=== PATIENT | male | born 1985 | race Caucasian/White ===

== ENCOUNTER 2019-10-27 08:11 | Emergency (ER) | payer MEDICAID ==
[~2019-10-27] VITALS: Ht 182.9 cm; Wt 108.9 kg
[2019-10-27] MEDS ORDERED: BACTRIM DS TAB1 EACH PO ×2 (08:28→08:47)
[2019-10-27] MEDS ORDERED: METHADONE HCL50 GM MISC (08:28)
== END 2019-10-27 09:02 | disposition home or self-care (01) ==
LOC: ED 08:11
PROC: 0H9BXZZ Drainage of Right Upper Arm Skin, External Approach (ICD-10-PCS; principal; 2019-10-27)
DX: L02.413 Cutaneous abscess of right upper limb (principal)
CPT/HCPCS: 10060; 99282-25

== ENCOUNTER 2019-11-14 09:31 | Emergency (ER) | payer MEDICAID ==
[~2019-11-14] VITALS: Ht 182.9 cm; Wt 108.9 kg
--- OUTSIDE RECORDS SUMMARY | ~2019-11-14 | XMS | Encounter Summary ---
Demographics + + + | Address | [address] | | | [place] [address] | + + + | Home Phone | | + + + | Preferred Language | Unknown | + + + | Marital Status | Single | + + + | Faith Affiliation | Unknown | + + + | Race | Unknown | + + + | Ethnic Group | Unknown | + + + Author + + + | Author | [facility] | | | and [place] | + + + | Organization | [facility] | | | and [place] | + + + | Address | Unknown | + + + | Phone | Unavailable | + + + Support + + +---------+ + | Name | Relationship | Address | Phone | + + +---------+ + | Adis Darden | ECON | Unknown | | + + +---------+ + Care Team Providers + +------+ + | Care Physical Design Engineer Name | Role | Phone | + +------+ + PCP | Unavailable | + +------+ + Encounter Details +--------+ + + + + | Date | Type | Department | Care Team | Description | +--------+ + + + + | 08/06/ | Hospital | [facility] | [place], | Altered mental | | 2012 - | Encounter | [facility] | [address] | status; Heroin use; | | | | CARE [address]LO[address] | Polysubstance | | 08/07/ | | [address] | [place] [address] | overdose; | | 2012 | | [place], [place] | [phone] | Hyperglycemia; Drug | | | | [address] | | overdose; Skin rash | | | | [phone] | | | +--------+ + + + + Social History + +-------+ +--------+------+ | Tobacco Use | Types | Packs/Day | Years | Date | | | | | Used | | + +-------+ +--------+------+ | Never Assessed | | | | | + +-------+ +--------+------+ + + + | Sex Assigned at | Date Recorded | | | | + + + | Not on file | | + + + documented as of this encounter Discharge Summaries Thi Duarte MD - 08/11/2012 4:14 PM PDTFormatting of this note might be different from th e original. Discharge Summaries by Thi Duarte MD at 08/11/121613 Author: Thi Duarte MD Service: Hospitalist Author Type: Physician Filed: 08/11/12 1625 Date of Service: 08/11/121613 Status: Signed Marine Firefighter: Thi Duarte MD (Physician) [facility] Service: Hospitalist Discharge Summary Date of Admission: 08/06/2012 Date of Discharge: 08/07/12 Discharge Physician: Thi Duarte MD Treatment Team: Admitting Provider: Kd Mckoy MD Discharge Diagnoses: Principal Problem: *Drug overdose Active Problems: Change in mental status Heroin use Skin rash Resolved Problems: * No resolved hospital problems. * Procedures: * No surgery found * Significant Diagnostic Studies: Refer to imaging report under chart review BRIEF HISTORY OF PRESENTATION: Laura Darden is a 27 y.o. male who presented with AMS due to illicit drug overdos e ,referf to H&P for details. He was obtunded most of the day when i was rounding on him,CRU evaluated him see their note, he left AMA during ranch cook see nursing documentation. History reviewed. No pertinent past medical history. Past Surgical History Procedure Date Knee arthroscopy Unlisted procedure arthroscopy No Known Allergies No prescriptions prior to admission There are no discharge medications for this patient. Thi Duarte MD @td documented in this encou nter Progress Notes Conversion Transaction, Provider Unknown - 08/07/2012 1:10 AM PDTFormatting of this note m ight be different from the original. Progress Notes by Marry Walker RN at 08/07/12109 Author: Marry Walker RN Service: (none) Author Type: Registered Nurse Filed: 08/07/12113 Date of Service: 08/07/12109 Status: Signed Marine Firefighter: Marry Walker RN (Registered Nurse) Informed by RN that pt wants to leave AMA. I spoke with pt regarding the reason for wantin g to leave. Per pt he is worried about his possessions in his apt being stolen and doesn't see the need for still being here, pt states "I feel fine". Per Dr. Ware pt is able to l eave AMA. Discussed risks of leaving AMA with pt, AMA form signed. Pt escorted out by pt rehan jo at apx 0020. Marry Walker 1:13 AM ancKd Gutierrez MD - 08/07/2012 12:10 AM PDTFormatting of this note might be different fr om the original. Significant Event by Kd Mckoy MD at 08/07/129 Author: Kd Mckoy MD Service: Hospitalist Author Type: Physician Filed: 08/07/1211 Date of Service: 08/07/129 Status: Signed Marine Firefighter: Kd Mckoy MD (Physician) Called by nurse Re: pt wants to leave AMA Discussed case with crisis response (lynette), after reviewing case and recent note from cri sis response. Crisis response refers that there are no grounds to detain the patient in the hospital (since apparently was not a suicidal attempt) and patient can leave if he decides s o Nurse informed about my conversatin with crisis response onversion T ransaction, Provider Unknown - 08/06/2012 7:32 PM PDTFormatting of this note might be diffe rent from the original. Progress Notes by Clemente García at 08/06/121931 Author: Clemente García Service: (none) Author Type: Construction Manager Filed: 08/06/121934 Date of Service: 08/06/121931 Status: Signed Marine Firefighter: Clemente García (Construction Manager) Extended visit with pt. Pt. Sister present throughout. Pt expressed significant complicated grief over numerous losses. Especially the of pt. Mother about 11mths ago. Pt. Grew tearful and expressed willingness to go to rehab. Construction Manager office will follow up. onver philipp Transaction, Provider Unknown - 08/06/2012 7:47 AM PDT Progress Notes by Shivam Real RPH at 08/06/12746 Author: Shivam Real RPH Service: (none) Author Type: Pharmacist Filed: 08/06/1247 Date of Service: 08/06/12746 Status: Signed Marine Firefighter: Shivam Real RPH (Pharmacist) Renal Dosing Monitoring: Laura Darden 27 y.o. male Pharmacy dosing for renal function per Dr. Mckoy Medication(s): none at this time Plan per protocol: Medication / Dose: no CrCl available Will re-assess Pharmacy will continue monitoring patient for appropriate dosing per renal function. 08/06/2012 7:46 AM Pharmacist: SHIVAM REAL docume nted in this encounter H&P Notes Kd Mckoy MD - 08/06/2012 5:29 AM PDTFormatting of this note might be diffe rent from the original. H&P by Kd Mckoy MD at 08/06/12528 Author: Kd Mckoy MD Service: (none) Author Type: Physician Filed: 08/06/12 1834 Date of Service: 08/06/12528 Status: Signed Marine Firefighter: Kd Mckoy MD (Physician) Related Notes: Original Note by Kd Mckoy MD (Physician) filed at 08/06/12 0606 [facility] Service: Hospitalist Admission History & Physical Date of Admission: 08/06/2012 Requesting Physician: Dr Rooney, Emergency Department Reason for Admission: Change in mental status / drug overdose History Obtained From: patient CHIEF COMPLAINT: Change in mental status HISTORY OF PRESENT ILLNESS The patient is a 27 y.o. male with significant past medical history of Drug abuse who pres ents with Change in mental status The patient is a 27-year-old male with a significant past medical history of drug abuse and per chart review previous visits to the ED due to heroin and methamphetamine who comes to the ED with change in mental status. The patient, in fact, was found unresponsive. History is quite limited due to the patient's mental status. No family is present. History is taken by chart review. Apparently, the patient was found in the bedroom by the patient's girlfriend unresponsive. Unknown down time. Next to him was found drug paraphernalia is the reason why the EMS was called. The patient was found lying on the ground unconscious is the reason why the patient was brought to the ED where he received initially Narcan IV and currently Narcan drip. The patient does have multiple tracks and marked tracks on both arms. Currently the patient is not responding to verbal stimuli. He is responding to painful stimuli, able to move all extremities. He looks like he is able to protect his airway at this point. The patient will be admitted under the hospitalist service for further assessment and treatment. Urine drug screen is pending but has been ordered. CT of the head came back negative for any acute intracranial abnormalities. REVIEW OF SYSTEMS Review of Systems Unable to perform ROS: Mental status change History reviewed. No pertinent past medical history. Past Surgical History Procedure Date Knee arthroscopy Unlisted procedure arthroscopy Immunizations: Influenza: Pneumoccocal: No Known Allergies (Not in a hospital admission) History reviewed. No pertinent family history. History Social History Marital Status: Single Spouse Name: N/A Number of Children: N/A Years of Education: N/A Occupational History Not on file. Social History Main Topics Smoking status: Never Smoker Smokeless tobacco: Not on file Alcohol Use: No Drug Use: Yes Special: Methamphetamines, Heroin, IV Sexually Active: Yes -- Female partner(s) Other Topics Concern Not on file Social History Narrative No narrative on file PHYSICAL EXAM Vital Signs: BP 106/60 | Pulse 96 | Resp 20 | SpO2 98% Physical Exam Constitutional: He appears well-developed. He appears lethargic. HENT: Head: Atraumatic. Nose: Nose normal. Eyes: EOM are normal. Pupils are equal, round, and reactive to light. Neck: Neck supple. No JVD present. Cardiovascular: Normal rate, regular rhythm and normal heart sounds. Exam reveals no glass p and no friction rub. No murmur heard. Pulmonary/Chest: Effort normal. No respiratory distress. He has no wheezes. He has no rales . He exhibits no tenderness. Abdominal: Soft. He exhibits no distension and no mass. There is no tenderness. There is no rebound and no guarding. Musculoskeletal: He exhibits no edema. Neurological: He appears lethargic. Limited neurological exam - Pt not responding to verbal stimuli / able to respond to p ainful stimuli / no obvious signs of focalization Skin: DATA CBC: Lab Results Component Value Date WBC 7.5 08/06/2012 RBC 4.83 08/06/2012 HGB 15.7 08/06/2012 HCT 47.6 08/06/2012 MCV 98.6 08/06/2012 MCH 32.6 08/06/2012 MCHC 33.1 08/06/2012 RDW 42.9 08/06/2012 PLT 213 08/06/2012 MPV 8.8 08/06/2012 DIFFTYPE AUTOMATED 08/06/2012 CMP: Lab Results Component Value Date NA 140 08/06/2012 K 3.9 08/06/2012 CL 103 08/06/2012 CO2 20* 08/06/2012 ANIONGAP 20 08/06/2012 GLUF 216* 08/06/2012 BUN 9 08/06/2012 CREATININE 1.34* 08/06/2012 BCR 7 08/06/2012 CA 8.1* 08/06/2012 PROT 7.2 08/06/2012 ALB 3.7 08/06/2012 GLOB 3.5 08/06/2012 BILITOT 0.7 08/06/2012 ALP 57 08/06/2012 AST 34 08/06/2012 ALT 103* 08/06/2012 EGFR >60 08/06/2012 Hepatic Function Panel: Lab Results Component Value Date PROT 7.2 08/06/2012 ALB 3.7 08/06/2012 BILITOT 0.7 08/06/2012 ALP 57 08/06/2012 AST 34 08/06/2012 ALT 103* 08/06/2012 CT Head Non-Con [[id number]] Resulted:08/06/12432 Order Status:Completed Updated:08/06/12432 Narrative: IMPRESSION: 1. Left frontal, maxillary and ethmoidal sinusitis. 2. Negative for an acute or focal intracranial abnormality. RADIA Read by Dino Tinoco MD on Aug 06 2012 4:33AM PROBLEM LIST Principal Problem: *Drug overdose Active Problems: Change in mental status Heroin use ASSESSMENT & PLAN A -Change in mental status - pt found unconscious / unknown downtime / per chart reviewed hx of heroin, methamphetamine abuse / able to respond to painful stimuli only currently / CT he ad negative for acute intracranial abnormality / UDS pending Possibly due to drug overdose - most likely polysubstance abuse due to lack of response to IV narcan in the ED / ? Unintentional - due to lack of history impossible to determine at th is point -Hx of heroin and methamphetamine use -Increase in creatinine - mild / possible prerenal but due to unknown downtime will rule ou t rhabdomyolysis P Will admit to inpatient IVF Further history in AM per morning hospitalist to determine need for psychiatry and/or crisi s response Continue narcan drip UDS for further determination of polysusbtance abuse CPK x 2 / urine studies MAP > 75 / will avoid nephrotoxins, ACEI ARB, and contrast if possible Sitter at bedside - in case of vomit until patient more awake Will avoid benzos, opioids and any DEMAND PLANNING ANALYST depressant NPO for now / will advance diet once patient more awake DVT / GI prophyllaxis Disposition: Inpatient / Full code - by default Code Status: No Order Primary Care Physician: PER PT NONE Kd Mckoy MD 08/06/2012 documented i n this encounter Consult Notes Conversion Transaction, Provider Unknown - 08/06/2012 4:35 PM PDTFormatting of this note m ight be different from the original. Consult* by Fadumo Watt at 08/06/12 2197 Author: Fadumo Watt Service: Emergency Department Author Type: (none) Filed: 08/06/12 1646 Date of Service: 08/06/12 1635 Status: Signed Marine Firefighter: Fadumo Watt (Crisis Intervention User) [facility] Crisis Response Unit Date: 08.06.12 Consumer: Laura Darden Client ID: [id number] Mental Status: Client is a 27 year old male, . He is alert, oriented, and very co operative in interview. Stream of thought is clear at this time. Content of thought is darby ear and future oriented. Speech is soft and of normal rate and rhythm. Client denied A/V h allucinations. Mood is sad and then euthymic, affect is labile. Client denied suicidal felix ation, stating that he was not trying to kill himself when he over dosed. He reported a frie nd needed money so he bought extra drugs from him and used most of them. Insight is poor, j udgment and impulse control are poor to fair. Diagnostic Impression [place] I: Polysubstance abuse [place] II: DeferredGAF: 35 Place of Contact:[facility] Disposition/LRAS Considered/Intervention Plan:Discussed treatment options with client at [facility]. He has never been to treatment and has been using drugs since the age of 12. At this point his drug of choice is methamphetamine. He occasionally uses cocaine and heroin. Th e client contracted for safety and agreed to stay at [facility] until the doctor releases him. He stated, "I will stay, I need to recharge my batteries". Offered chemical dependency referra l options to the client as well as mental health treatment options. The client declined all referrals. He was given contact information for Crisis Response and will utilize CRU as ne eded. Discharge per hospital protocol. Fadumo Vargasle 08/06/2012 Cira Fernandez 08/06/2012 1:45 PM PDTFormatting of this note might be different from the rickya l. Consult* by Cira Mead DO at 08/06/12 2757 Author: Cira Mead DO Service: (none) Author Type: Physician Filed: 08/06/12 6099 Date of Service: 08/06/123 Status: Signed Marine Firefighter: Cira Mead DO (Physician) [facility] Service: Infectious Disease Initial Consult Note Date of Admission: 08/06/2012 Reason for Consultation: Rash, question of fungal infection Requesting Physician: Bryant Duarte History Obtained From: patient, chart review CHIEF COMPLAINT: Rash HISTORY OF PRESENT ILLNESS The patient is a 27 y.o. male with significant past medical history of polysubstance abuse who presents with drug overdose, not yet determined whether or not it was intentional. The p atient was noted today to have a rash involving much of the torso. The patient reports that the rash has been present for approximately 3-5 months. It has not been painful or pruritic. He denies any associated fevers. He has not noticed any lesions except right on the central chest. The patient admits that he has shared needles in the past when using intravenous drugs. He was incarcerated 8 months ago and was tested for HIV at that time. He did reports that all t esting for HIV and hepatitis have always been negative. He is willing to be tested again. REVIEW OF SYSTEMS Review of Systems Complete review of the constitutional, ENT, cardiovascular, respiratory, gastrointestinal, genitourinary, integumentary, musculoskeletal, psychiatric, neurologic, heme/lymphatic syste ms is entirely negative except as described above in the history of the present illness. History reviewed. No pertinent past medical history. Past Surgical History Procedure Date Knee arthroscopy Unlisted procedure arthroscopy No Known Allergies No prescriptions prior to admission Scheduled Medications heparin (porcine) 5,000 Units Subcutaneous Q8H naloxone omeprazole 20 mg Oral QAM AC Or pantoprazole 40 mg Intravenous QAM AC pneumococcal 23-valent vaccine 0.5 mL Intramuscular Once Immunization sodium chloride 1,000 mL Intravenous Once sodium chloride 1,000 mL Intravenous Once sodium chloride 1,000 mL Intravenous Once Continuous Infusions naloxone (NARCAN) infusion 0.4 mg/hr (08/06/12 1316) sodium chloride 125 mL/hr at 08/06/12 0957 DISCONTD: naloxone (NARCAN) infusion 0.4 mg/hr (08/06/12 0359) PRN Medications acetaminophen, acetaminophen, LORazepam, ondansetron, ondansetron, polyethylene glycol History reviewed. No pertinent family history. History Social History Marital Status: Single Spouse Name: N/A Number of Children: N/A Years of Education: N/A Occupational History Not on file. Social History Main Topics Smoking status: Current Everyday Smoker -- 1.0 packs/day Smokeless tobacco: Never Used Alcohol Use: No Drug Use: Yes Special: Methamphetamines, Heroin, IV Sexually Active: Yes -- Female partner(s) Other Topics Concern Not on file Social History Narrative No narrative on file PHYSICAL EXAM Vital Signs: BP 95/52 | Pulse 76 | Temp(Src) 97.7 F (36.5 C) (Axillary) | Resp 16 | SpO2 96% Temp (24hrs), Av.7 F (36.5 C), Min:97.7 F (36.5 C), Max:97.7 F (36.5 C) Physical Exam Constitutional: The patient is in no acute distress and appears stated age. Vital signs wer e reviewed as above Head: Normocephalic and atraumatic ENT: Mucous membranes are moist. There is no evidence of thrush. No pharyngeal exudates. Neck: Supple without thyromegaly or meningismus. Heart: Regular rate and rhythm without murmurs gallops or rubs Lungs: Clear to auscultation bilaterally without wheezes rales or rhonchi. Abdomen: Soft and nontender, bowel sounds are present, there is no organomegaly or mass Musculoskeletal: There is no gross deformity or active arthritis. Neuro: There are no gross deficits of motor or sensory function Skin: Multiple coin-like lesions noted on the central chest, anterior right shoulder, anter ior left shoulder with central clearing, consistent with ringworm. There are no ulcerations or significant wounds. Extremities: There is no clubbing, cyanosis, or peripheral edema. Psychiatric: The patient attends the examiner without difficulty and affect is appropriate. DATA CBC: Lab Results Component Value Date WBC 7.5 08/06/2012 RBC 4.83 08/06/2012 HGB 15.7 08/06/2012 HCT 47.6 08/06/2012 MCV 98.6 08/06/2012 MCH 32.6 08/06/2012 MCHC 33.1 08/06/2012 RDW 42.9 08/06/2012 PLT 213 08/06/2012 MPV 8.8 08/06/2012 DIFFTYPE AUTOMATED 08/06/2012 CMP: Lab Results Component Value Date NA 140 08/06/2012 K 3.9 08/06/2012 CL 103 08/06/2012 CO2 20* 08/06/2012 ANIONGAP 20 08/06/2012 GLUF 216* 08/06/2012 BUN 9 08/06/2012 CREATININE 1.34* 08/06/2012 BCR 7 08/06/2012 CA 8.1* 08/06/2012 PROT 7.2 08/06/2012 ALB 3.7 08/06/2012 GLOB 3.5 08/06/2012 BILITOT 0.7 08/06/2012 ALP 57 08/06/2012 AST 34 08/06/2012 ALT 103* 08/06/2012 EGFR >60 08/06/2012 Microbiology: No significant data Toxicology screen: Urine toxicology positive for amphetamines, methamphetamines, opiates an d cocaine Medical imaging: CT scan of the head showed the following: IMPRESSION: 1. Left frontal, maxillary and ethmoidal sinusitis. 2. Negative for an acute or focal intracranial abnormality. Medical record review: I have reviewed the patient's admission history and physical as well as progress notes from the current hospital stay. Emergency department notes have also been reviewed. Much of this information is summarized above in history of present illness. PROBLEM LIST Principal Problem: *Drug overdose Active Problems: Change in mental status Heroin use Skin rash ASSESSMENT & PLAN Patient Active Hospital Problem List: Drug overdose (08/06/2012) The patient appears to have recovered from the overdose. Change in mental status (08/06/2012) Secondary to drug overdose. Heroin use (08/06/2012) The patient has admitted to intravenous use with shared needles. He has been screened a m onth ago for hepatitis and HIV, but it would be indicated to repeat screening at this time. The patient gave consent for HIV screening. Skin rash (08/06/2012) This is consistent with Ringworm (tinea corporis). The patient has numerous lesions and i s unlikely to be compliant with topical therapy. I would recommend treatment with fluconazol e 150 mg today with repeat dose in one week. I advised the patient that the rash is likely t o become more visible and pruritic over the next 24 hours and should subsequently improve. Code Status: Full Code Primary Care Physician: PER PT NONE Thank you for allowing me to participate in the care of this patient. I will continue to follow with you. CIRA MEAD DO 08/06/2012 documented in this encount er ED Notes Conversion Transaction, Provider Unknown - 08/06/2012 5:49 AM PDTFormatting of this note m ight be different from the original. ED Notes by Patria Marcos RN at 08/06/1249 Author: Patria Marcos RN Service: (none) Author Type: Registered Nurse Filed: 08/06/1256 Date of Service: 08/06/12548 Status: Signed Marine Firefighter: Patria Marcos RN (Registered Nurse) Pt is arouses to verbal stimuli at this time. Patria Griffiths RN 08/06/1256 onver philipp Transaction, Provider Unknown - 08/06/2012 5:39 AM PDT ED Notes by Patria Marcos RN at 08/06/12538 Author: Patria Marcos RN Service: (none) Author Type: Registered Nurse Filed: 08/06/12538 Date of Service: 08/06/12538 Status: Signed Marine Firefighter: Patria Marcos RN (Registered Nurse) Dr. Ware at bedside. Patria Griffiths RN 08/06/12538 onver philipp Transaction, Provider Unknown - 08/06/2012 4:12 AM PDT ED Notes by Patria Marcos RN at 08/06/12411 Author: Patria Marcos RN Service: (none) Author Type: Registered Nurse Filed: 08/06/12411 Date of Service: 08/06/12411 Status: Signed Marine Firefighter: Patria Marcos RN (Registered Nurse) CT in progress Patria Griffiths RN 08/06/12411 onver philipp Transaction, Provider Unknown - 08/06/2012 3:53 AM PDT ED Notes by Alfonso Conner RN at 08/06/123 Author: Alfonso Conner RN Service: (none) Author Type: Registered Nurse Filed: 08/06/124 Date of Service: 08/06/12352 Status: Signed Marine Firefighter: Alfonso Conner RN (Registered Nurse) Pt answering questions. Pt stated to have smoked Heroin tonight. Dr. Escalona notified. Alfonso Conner RN 08/06/12 0354 onver philipp Transaction, Provider Unknown - 08/06/2012 3:50 AM PDT ED Notes by Alfonso Conner RN at 08/06/12349 Author: Alfonso Conner RN Service: (none) Author Type: Registered Nurse Filed: 08/06/12349 Date of Service: 08/06/12349 Status: Signed Marine Firefighter: Alfonso Conner RN (Registered Nurse) Tele contacted and pt placed on monitor. Alfonso Conner RN 08/06/12349 onver philipp Transaction, Provider Unknown - 08/06/2012 3:45 AM PDT ED Notes by Alfonso Conner RN at 08/06/12344 Author: Alfonso Conner RN Service: (none) Author Type: Registered Nurse Filed: 08/06/12349 Date of Service: 08/06/12344 Status: Signed Marine Firefighter: Alfonso Conner RN (Registered Nurse) Pt lifted head off of stretcher and looked around room. Alfonso Conner RN 08/06/12349 onver philipp Transaction, Provider Unknown - 08/06/2012 3:44 AM PDT ED Notes by Brandie Sánchez RN at 08/06/12343 Author: Brandie Sánchez RN Service: (none) Author Type: Registered Nurse Filed: 08/06/12344 Date of Service: 08/06/12343 Status: Signed Marine Firefighter: Brandie Sánchez RN (Registered Nurse) Pt opens eyes spontaneously after narcan but does not respond to questions. Brandie Sánchez RN 08/06/12344 onver philipp Transaction, Provider Unknown - 08/06/2012 3:42 AM PDT ED Notes by Brandie Sánchez RN at 08/06/12341 Author: Brandie Sánchez RN Service: (none) Author Type: Registered Nurse Filed: 08/06/12342 Date of Service: 08/06/12341 Status: Signed Marine Firefighter: Brandie Sánchez RN (Registered Nurse) Pt moaning with IV start but not opening eyes. Dr escalona remains at bedside Brandie Sánchez RN 08/06/12342 onver philipp Transaction, Provider Unknown - 08/06/2012 3:40 AM PDT ED Notes by Brandie Sánchez RN at 08/06/12339 Author: Brandie Sánchez RN Service: (none) Author Type: Registered Nurse Filed: 08/06/12339 Date of Service: 08/06/12339 Status: Signed Marine Firefighter: Brandie Sánchez RN (Registered Nurse) 3.[address] escalona IVP Brandie Sánchez RN 08/06/12339 onver philipp Transaction, Provider Unknown - 08/06/2012 3:36 AM PDT ED Notes by Brandie Sánchez RN at 08/06/12335 Author: Brandie Sánchez RN Service: (none) Author Type: Registered Nurse Filed: 08/06/12336 Date of Service: 08/06/12335 Status: Signed Marine Firefighter: Brandie Sánchez RN (Registered Nurse) Per EMS girlfriend found boyfriend with drug paraphernalia in room and not breathing normal ly. Brandie Sánchez RN 08/06/12336 llgai er, Jaime Delacruz MD - 08/06/2012 3:35 AM PDTFormatting of this note might be different fro m the original. ED Provider Notes by Jaime Escalona MD at 08/06/12334 Author: Jaime Escalona MD Service: (none) Author Type: Physician Filed: 08/06/12 0631 Date of Service: 08/06/12334 Status: Signed Marine Firefighter: Jaime Escalona MD (Physician) [facility] Department of Emergency Medicine 08/06/2012 History of Present Illness Patient Identification Laura Darden is a 27 y.o. male. Patient information was obtained from EMS personnel. History/Exam limitations: mental status. Patient presented to the Emergency Department by: [facility] 1723 Chief Complaint Chief Complaint Patient presents with Drug Overdose EMS called for loss of consciousness. EMS arrived to find pt lying on ground unconscious. Pt was surrounded by drug paraphanlia and was noted to have multiple track peralta on arms. Loss of Consciousness 03:36. Pt presents to the ED with drug overdose and AMS. EMS state that the pt's girlfriend found the pt unresponsive and not breathing in his bedroom so she called the ambulance. Pt was surrounded by drug paraphernalia and was noted to have multiple track peralta on arms. Unk nown downtime. Severity is described as moderate to severe. No exacerbating or releiving fac tors. EMS gave the pt a total of 4 mg of Narcan without much response. Pt received 2.4 mg na franco and 1.6 mg via IV. Blood sugar was 212. History reviewed. No pertinent past medical history. Past Surgical History Procedure Date Knee arthroscopy Unlisted procedure arthroscopy Prior to Admission medications Not on File No Known Allergies History Social History Marital Status: Single Spouse Name: N/A Number of Children: N/A Years of Education: N/A Occupational History Not on file. Social History Main Topics Smoking status: Never Smoker Smokeless tobacco: Not on file Alcohol Use: No Drug Use: Yes Special: Methamphetamines, Heroin, IV Sexually Active: Yes -- Female partner(s) Other Topics Concern Not on file Social History Narrative No narrative on file History reviewed. No pertinent family history. Review of Systems ROS unobtainable due to mental status Physical Exam BP 117/65 | Pulse 119 | Resp 18 | SpO2 89% Pulse Oximetry Interpretation: Hypoxemic General: Lethargic, does not answer questions or follow commands Eyes: 2mm pupils, reactive ENT: Normal external inspection Neck: Normal inspection Supple Full ROM Cardiovascular: Tachycardic, normal rhythm Respiratory: No respiratory distress or wheezing Abdomen: Soft, non-distended Skin: Diaphoretic, warm, normal color Extremities: Multiple track peralta to bilateral arms Neuro: No gross motor/sensory deficit Exam limited due to mental status Medical Decision Making and Emergency Department Course ED Department Course 03:36. Pt presents to the ED with drug overdose and AMS. Found unresponsive and not breathi ng by girlfriend. Pt was surrounded by drug paraphernalia and was noted to have multiple tra ck peralta on arms. Unknown downtime. EMS gave the pt a total of 4 mg of Narcan without much r esponse as described in HPI. 03:42. 3.2 mg IV Narcan given. 03:45. Mild response to Narcan. Woke up for a few seconds a couple times. 03:50. CBC, CMP, CPK, etoh level, Tylenol level, ASA level, UDS, and CT head ordered. 03:54. Pt told nurse he smoked heroin tonight. Maintained on threat monitoring analyst. Patient was able to respond to simple commands and was controlling airway, but still lethargic. 04:21:15 Vital Signs Vitals Assessment - Restart Vitals Timer: Yes Vital Signs - Heart Rate: 99 ; Heart Rate Source: Monitor ; Resp: 20 ; Resp Source: visual ; BP: 118/67 ; BP Location: Left arm ; BP Method: Automatic ; Patient Position: Lying ; Curr ently in Pain: Unable to assess ; SpO2: 95 Pain Assessment - Currently in Pain: Unable to assess Oxygen Therapy - SpO2: 95 ; O2 Device: Nasal cannula ; O2 Flow Rate (L/min): 2 Patient stable during the ED course, VSS. 04:49 Devices Testing Template Device Data - Heart Rate: 96 (Device Time: 04:49:00) ; SpO2: 95 (Device Time: 04:49:00) ; BP: 108/60 (Mansi ce Time: 04:49:06) Vital Signs - NIBP Mean: 78 (Device Time: 04:49:06) Other flowsheet entries - SpO2 Pulse: 96 (Device Time: 04:49:00) 04:58. Reviewed CT results. No acute process. 05:05. Will admit pt at this time and place call to hospitalist. 05:18. Discussed pt's case with Dr. Ware, hospitalist, who will see and admit the pt. UD S still pending. 0 Records Reviewed Nursing Notes Old medical records Laboratory Evaluation Results Procedure Component Value Ref Range Date/Time CPK [[id number]] Collected:08/06/12342 Order Status:Completed Updated:08/06/12449 CPK 151 55 - 400 U/L Comprehensive metabolic panel [[id number]] (Abnormal) Collected:08/06/12342 Order Status:Completed Updated:08/06/12449 SODIUM 140 135 - 143 mmol/L POTASSIUM 3.9 3.5 - 4.9 mmol/L CHLORIDE 103 99 - 109 mmol/L CO2 20 (L) 23 - 32 mmol/L ANION GAP AGAP 20 5 - 20 mmol/L GLUCOSE 216 (H) 65 - 99 mg/dL BUN 9 8 - 25 mg/dL CREATININE 1.34 (H) 0.70 - 1.30 mg/dL BUN/CREAT 7 CALCIUM 8.1 (L) 8.5 - 10.2 mg/dL TOTAL PROTEIN 7.2 6.3 - 8.2 g/dL Albumin 3.7 3.6 - 5.0 g/dL GLOBULIN 3.5 1.3 - 4.9 g/dL A/G 1.1 1.0 - 2.4 TBIL 0.7 0.1 - 1.5 mg/dL ALK PHOS 57 35 - 115 U/L AST 34 10 - 45 U/L ALT 103 (H) 10 - 65 U/L EGFR >60 >60 mL/min/1.73m2 CBC w/auto diff (reflex to manual) [[id number]] Collected:08/06/12342 Order Status:Completed Updated:08/06/12442 WBC 7.5 3.8 - 11.0 K/uL RBC 4.83 4.20 - 5.70 M/uL HGB 15.7 13.2 - 17.0 g/dL HCT 47.6 39.0 - 50.0 % MCV 98.6 80.0 - 100.0 fl MCH 32.6 27.0 - 34.0 pg MCHC 33.1 32.0 - 35.5 g/dL RDW SD 42.9 37 - 53 fl PLT 213 150 - 400 K/uL MPV 8.8 fl DIFF TYPE AUTOMATED NEUTROPHILS 60.2 40 - 75 % LYMPHOCYTES 30.4 15 - 48 % MONOCYTES 8.3 0 - 12 % EOSINOPHILS 0.8 0 - 7 % BASOPHILS 0.3 0 - 2 % NEUTROPHILS ABS 4.5 1.9 - 7.4 K/uL LYMPHOCYTES ABS 2.3 1.0 - 3.9 K/uL MONOCYTES ABS 0.6 0 - 0.8 K/uL EOSINOPHILS ABS 0.1 0 - 0.5 K/uL BASOPHILS ABS 0.0 0 - 0.1 K/uL Ethanol Level [[id number]] Collected:08/06/12342 Order Status:Completed Updated:08/06/12421 Specimen Information:Blood ALCOHOL,ETHYL <3 <10 mg/dL Acetaminophen (Tylenol) Level [[id number]] (Abnormal) Collected:08/06/12342 Order Status:Completed Updated:08/06/12421 Specimen Information:Blood ACETAMINOPHEN <2.0 (L) 10.0 - 30.0 ug/mL Salicylate (Aspirin) Level [[id number]] (Abnormal) Collected:08/06/12342 Order Status:Completed Updated:08/06/12414 Specimen Information:Blood SALICYLATE 2.6 (L) 2.8 - 20.0 mg/dL Radiology and EKG Evaluation Imaging Results CT Head Non-Con (Preliminary result) Result time:08/06/12432 Preliminary result by Rad Results In Joshua (08/06/12 04:33:11) Narrative: IMPRESSION: 1. Left frontal, maxillary and ethmoidal sinusitis. 2. Negative for an acute or focal intracranial abnormality. [facility] Read by Dino Tinoco MD on Aug 06 2012 4:33AM EKG from 04:26. NSR at 100. Normal intervals. Normal axis and QRS. No ST elevations or depr essions. No acute ischemia. Viewed and interpreted by Jaime Escalona MD ED Diagnoses Final diagnoses Altered mental status Heroin use Polysubstance overdose Hyperglycemia Disposition: ED Disposition Admit/Observation Requested Unit:: Acute Care Bed request special needs: Telemetry Diagnosis?: polysubstance overdose, AMS Additional Documentation Procedures Attending Note: Documentation assistance provided by Shanika Houston (Scribe). Information recorded by the scribe has been reviewed and validated by me. Sangeeta montoya with its contents. MD Jaime Nash MD 08/06/12 0631 documented in this encounter Miscellaneous Notes Plan of Care - Thi Duarte MD - 08/06/2012 12:27 PM PDTFormatting of this note might be di fferent from the original. Plan of Care by Thi Duarte MD at 08/06/12 [id number] Author: Thi Duarte MD Service: Hospitalist Author Type: Physician Filed: 08/06/12 1230 Date of Service: 08/06/12 1227 Status: Signed Marine Firefighter: Thi Duarte MD (Physician) Pt seen and examined,he arouses to painful stimuli and shouting his name out,moves all for extremities but still not alert or awake,borderline low BP and dark urine,NSR, skin rash ID consult . 2 L O2 sat above 92%.no family at bed side. Results for LAURA DARDEN ( ) as of 08/06/2012 12:29 Ref. Range 08/06/2012 08:04 AMPHETAMINE Latest Range: NEGATIVE PRESUMPTIVE POSITIVE (A) EPITHELIAL No range found 0-2 TRICYCLIC ANTIDEPRESS Latest Range: NEGATIVE NEGATIVE METHADONE Latest Range: NEGATIVE NEGATIVE OPIATES Latest Range: NEGATIVE PRESUMPTIVE POSITIVE (A) BARBITUATES Latest Range: NEGATIVE NEGATIVE BENZODIAZEPINE Latest Range: NEGATIVE NEGATIVE THC Latest Range: NEGATIVE NEGATIVE COCAINE Latest Range: NEGATIVE PRESUMPTIVE POSITIVE (A) METHAMPHETAMINES Latest Range: NEGATIVE PRESUMPTIVE POSITIVE (A) PCP Latest Range: NEGATIVE NEGATIVE Tih Duarte 08/06/2012 documented in this encou nter Plan of Treatment Not on filedocumented as of this encounter Procedures + +--------+ + + + | Procedure Name | Priori | Date/Time | Associated Diagnosis | Comments | | | ty | | | | + +--------+ + + + | CT HEAD WO CONTRAST | Routin | 08/06/2012 | | Results for this | | | e | 4:19 AM | | procedure are in the | | | | PDT | | results section. | + +--------+ + + + documented in this encounter Results CT Head wo Contrast (08/06/2012 4:19 AM PDT) + + | Specimen | + + | | + + + + + | Narrative | Performed At | + + + | EXAM: HEAD CT EXAM DATE: 08/06/2012 04:19 AM CLINICAL | | | HISTORY: Altered mental status and overdose. COMPARISON: None. | | | TECHNIQUE: Multiaxial CT images were obtained from the foramen magnum | | | to the vertex. IV contrast: None. FINDINGS: Parenchyma: Negative | | | for acute intracranial hemorrhage. There is no midline shift or mass | | | effect. Cramer-white matter differentiation is preserved. Extraaxial | | | Spaces: Normal for age. No subdural or epidural collections | | | identified. Ventricles: Normal in size and position. Sinuses: | | | There is complete opacification of the left maxillary sinus. The left | | | frontal and ethmoidal sinuses are opacified. Mastoid sinuses are | | | clear. Bones: No evidence of fracture or calvarial defect. | | | Other: None. IMPRESSION: 1. Left frontal, maxillary and ethmoidal | | | sinusitis. 2. Negative for an acute or focal intracranial | | | abnormality. [facility] Electronically signed by Dino | | | MD Earnest on Aug 06 2012 10:00PM SITE ID: [id number] | | + + + + + | Procedure Note | + + | Rinku Lewis Conversion - 12/24/2018 11:33 PM PDT EXAM:HEAD CT EXAM DATE: 08/06/2012 04:19 | | AM CLINICAL HISTORY: Altered mental status and overdose. COMPARISON: None. TECHNIQUE: | | Multiaxial CT images were obtained from the foramen magnum to the vertex. IV contrast: | | None. FINDINGS:Parenchyma: Negative for acute intracranial hemorrhage. There is no | | midline shift or mass effect. Cramer-white matter differentiation is preserved. Extraaxial | | Spaces: Normal for age. No subdural or epidural collections identified. Ventricles: | | Normal in size and position. Sinuses: There is complete opacification of the left | | maxillary sinus. The left frontal and ethmoidal sinuses are opacified. Mastoid sinuses | | are clear. Bones: No evidence of fracture or calvarial defect. Other: None. | | IMPRESSION:1. Left frontal, maxillary and ethmoidal sinusitis.2. Negative for an acute | | or focal intracranial abnormality. [facility] Electronically signed by Dino Tinoco | | on Aug 06 2012 10:00PM SITE ID: [id number] | |Parenchyma: Negative for acute intracranial hemorrhage. There is no midline shift or mass e ffect. Cramer-white matter differentiation is preserved. | | | |Extraaxial Spaces: Normal for age. No subdural or epidural collections identified. | | | |Ventricles: Normal in size and position. | | | |Sinuses: There is complete opacification of the left maxillary sinus. The left frontal and ethmoidal sinuses are opacified. Mastoid sinuses are clear. | | | |Bones: No evidence of fracture or calvarial defect. | | | |Other: None. | | | |IMPRESSION: | |1. Left frontal, maxillary and ethmoidal sinusitis. | |2. Negative for an acute or focal intracranial abnormality. | | | |RAD[facility] | | | | Electronically signed by Dino Tinoco MD on Aug 06 2012 10:00PM SITE ID: [id number] | + + documented in this encounter Visit Diagnoses + + | Diagnosis | + + | Altered mental status | + + | Heroin use Opioid abuse, unspecified | + + | Polysubstance overdose Poisoning by unspecified drug or medicinal substance | + + | Hyperglycemia Other abnormal glucose | + + | Drug overdose Poisoning by unspecified drug or medicinal substance | + + | Skin rash Rash and other nonspecific skin eruption | + + documented in this encounter
--- OUTSIDE RECORDS SUMMARY | ~2019-11-14 | XMS | Encounter Summary ---
Demographics + + + | Address | [address] | | | [place] [address] | + + + | Home Phone | | + + + | Preferred Language | Unknown | + + + | Marital Status | Single | + + + | Faith Affiliation | Unknown | + + + | Race | Unknown | + + + | Ethnic Group | Unknown | + + + Author + + + | Author | [facility] | | | and [place] | + + + | Organization | [facility] | | | and [...] Team Providers + +------+ + | Care Bakery Machine Mechanic Name | Role | Phone | + +------+ + | No, Physician | PCP | Unavailable | + +------+ + Encounter Details +--------+ + + + + | Date | Type | Department | Care Team | Description | +--------+ + + + + | 09/10/ | Emergency | [facility] | Carlos Enrique Tran, | Metatarsalgia of | | 2015 | | [facility] | [address] | left foot; Left foot | | | | [facility] | [place] | pain | | | | [address] | [id number] | | | | | [place] | | | | | | [address] | | | | | | [phone] | | | +--------+ + + + + Social History + + + +--------+------+ | Tobacco Use | Types | Packs/Day | Years | Date | | | | | Used | | + + + +--------+------+ | Current Every Day | Cigarettes | 0.5 | | | | Smoker | | | | | + + + +--------+------+ + + + | Sex Assigned at | Date Recorded | | | | + + + | Not on file | | + + + documented as of this encounter ED Notes Curt Connell ARNP - 09/10/2014 10:18 AM PDT ED Provider Notes by DANNY Allen at 09/10/14 1018 Author: DANNY Allen Service: (none) Author Type: Nurse Practitioner Filed: 09/10/14 1112 Date of Service: 09/10/14 1018 Status: Attested Accelerator Systems Director: DANNY Allen (Nurse Practitioner) Cosigner: Carlos Enrique Tran DO at 5 1306 Procedure Orders: 1. Orthopedic injury treatment [[id number]] ordered by DANNY Allen at 09/10/14 1111 Attestation signed by Carlos Enrique Tran DO at 09/11/14 1306 I have reviewed the chart note and supervised the midlevel provider Orthopedic Injury Date/Time: 09/10/2014 11:11 AM Performed by: CURT CONNELL Authorized by: CURT CONNELL Consent: Verbal consent obtained. Risks and benefits: risks, benefits and alternatives were discussed Consent given by: power of employment law attorney and patient Patient understanding: patient states understanding of the procedure being performed Patient consent: the patient's understanding of the procedure matches consent given Procedure consent: procedure consent matches procedure scheduled Required items: required blood products, implants, devices, and special equipment available Patient identity confirmed: arm band Injury location: foot Location details: left foot Injury type: soft tissue Pre-procedure neurovascular assessment: neurovascularly intact Pre-procedure distal perfusion: normal Pre-procedure neurological function: normal Pre-procedure range of motion: normal Local anesthesia used: no Patient sedated: no Immobilization: Walking boot. Post-procedure neurovascular assessment: post-procedure neurovascularly intact Post-procedure distal perfusion: normal Post-procedure neurological function: normal Post-procedure range of motion: unchanged Patient tolerance: Patient tolerated the procedure well with no immediate complications [facility] Department of Emergency Medicine HPI History of Present Illness Patient Identification Laura Darden is a 29 y.o. male. Patient information was obtained from patient. History/Exam limitations: none. Patient presented to the Emergency Department by: Car Chief Complaint Chief Complaint Patient presents with Foot Pain woke up with lt foot pain, denies injury The patient complains of left hip pain. Onset of symptoms was last night, with a intermitte nt course since that time. The symptoms are described to be of mild to moderate severity. 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 Patient reports pain in the midfoo t behind toes.. Patient reports pain is worse with weightbearing and relieved with rest. Pat ient denies any trauma or injury. Past Medical History Diagnosis Date Blind left eye Past Surgical History Procedure Laterality Date Knee arthroscopy Unlisted procedure arthroscopy Prior to Admission medications Not on File No Known Allergies History Social History Marital Status: Single Spouse Name: N/A Number of Children: N/A Years of Education: N/A Occupational History Not on file. Social History Main Topics Smoking status: Current Every Day Smoker -- 1.00 packs/day Smokeless tobacco: Never Used Comment: e cigarette Alcohol Use: No Drug Use: No Sexual Activity: Partners: Female Other Topics Concern Not on file Social History Narrative History reviewed. No pertinent family history. ROS Review of Systems Constitutional: Negative for: fever, chills, fatigue, sweats or weight loss Eyes: Negative for: decreased vision or irritated eyes Nose: Negative for: nosebleed Throat: Negative for: mouth sores Cardiovascular/Respiratory: Negative for: chest pain, shortness of breath, cough Gastrointestinal: Negative for: abdominal pain, vomiting, diarrhea, black or bloody stools Genitourinary: Negative for: dysuria, hematuria, urinary problems Musculoskeletal: Positive for left forefoot pain Negative for pain in the left heel. Skin: Negative for: laceration or lesion Neuro and psych: Negative for: fainting, head injury, seizure, trouble walking Endocrine/Heme/Lymph: Negative for: swollen lymph nodes, easy bruising Physical Exam Physical Exam BP 118/59 | Pulse 76 | Temp(Src) 98.2 F (36.8 C) (Oral) | Resp 12 | Ht 1.829 m (6') | W t 92.4 kg (203 lb 11.3 oz) | BMI 27.62 kg/m2 | SpO2 99% Pulse Oximetry interpretation: Normal otherwise normal vital signs General: Alert, in no apparent distress Eyes: Normal inspection, pupils equal and round, non-icteric Neck: Normal inspection Supple No lymphadenopathy No meningismus Cardiovascular: Rate and rhythm normal No murmurs Respiratory: Breath sounds normal bilaterally Abdomen: Soft, non-tender, non-distended No guarding or rebound Genitourinary: Deferred Rectal exam: Musculoskeletal left foot distal metatarsal tenderness to the plantar surface, no edema or ecchymosis noted. Circulation, sensation, movement intact distally. There is no tenderness t o the heel area. Back: Normal inspection Skin: Color normal Warm and dry No rash Neuro: No motor deficit No sensory deficit ED Course Medical Decision Making and Emergency Department Course ED Department This patient presents with pain to the bottom of his left foot. The list of possible emerg ent diagnoses that the patient requires an evaluation for includes (but is not limited to) d islocation and fracture, strain. I have ordered an x-ray to evaluate these bony injuries. Xray with no acute fracture dislocation. Patient with moderate tenderness to distal metatarsals on plantar surface of left foot. Will treat patient for metatarsalgia and place him in a walking boot. Patient to follow up with his primary care provider as discussed. Patient may return to the emergency department for new or worsening symptoms. I have discussed my clinical impression and treatment plan with the patient. We have speci fically discussed the signs and symptoms that would constitute the need for an immediate ret urn to the Emergency Department, the importance of continued outpatient follow up and furthe r testing (if deemed necessary by the patient's regular doctor) and the importance of compli ance with the discharge instructions. I have answered any questions that the patient has to the best of my ability. Based upon the patient s history, physical exam, emergency depar tment course, and any laboratory and diagnostic studies which may have been performed, I fee l that there is no current emergent medical condition that warrants admission, transfer, or further emergency department treatment at this time. Records Reviewed Old medical records. Labs & Radiology Results Laboratory Evaluation Results None Radiology and EKG Evaluation Imaging Results XR Foot Left AP Lateral and Oblique (Final result) Result time: 09/10/14 11:04:25 ED Interpretation Documented by DANNY Allen (09/10/14 11:04:25, [facility] in [facility]) No acute fracture or dislocation. Final result by Rad Results In Joshua (09/10/14 10:55:55) Impression: FINDINGS/ IMPRESSION: No acute fracture or dislocation. No bone, joint or soft tissue abnormality. Narrative: [facility] 1985 XR FOOT LEFT 09/10/2014 10:31 AM INDICATION: Foot pain COMPARISON: None TECHNIQUE: Left foot series, 3 views, PA, oblique and lateral views Diagnosis & Disposition ED Diagnoses Final diagnoses Metatarsalgia of left foot Left foot pain Disposition: ED Disposition Orders Discharge Condition at discharge: Stable Follow-up Information Follow up With Details Comments Contact [facility] MD Aquiles Schedule an appointment as soon as possible for a visit For follow-up [address] [facility] [address] [facility] in [place] As needed, If symptoms worsen [address] [facility] [address] Discharge Medications: New Prescriptions HYDROCODONE-ACETAMINOPHEN (NORCO) 5-325 MG PER TABLET Take 1-2 tablets by mouth every 6 (six) hours as needed for Pain. Do not exceed 8 in a 24 hour period. Do not take Tylenol, as this medication has Tylenol in it. IBUPROFEN (MOTRIN) 600 MG TABLET Take 1 tablet by mouth 4 (four) times daily as needed for Pain or Fever. DANNY Allen 09/10/14 1112 Carlos Enrique Tran DO 09/11/14 1306 documente d in this encounter Plan of Treatment Not on filedocumented as of this encounter Procedures + +--------+ + + + | Procedure Name | Priori | Date/Time | Associated Diagnosis | Comments | | | ty | | | | + +--------+ + + + | XR FOOT LEFT 3 + VW | Routin | 09/10/2014 | | Results for this | | | e | 10:31 AM | | procedure are in the | | | | PDT | | results section. | + +--------+ + + + documented in this encounter Results XR Foot Left 3 + Vw (09/10/2014 10:31 AM PDT) + + | Specimen | + + | | + + + + + | Impressions | Performed At | + + + | FINDINGS/ IMPRESSION: No acute fracture or dislocation. No bone, | | | joint or soft tissue abnormality. | | + + + + + + | Narrative | Performed At | + + + | [facility] 1985 XR FOOT LEFT 09/10/2014 10:31 AM | | | INDICATION: Foot pain COMPARISON: None TECHNIQUE: Left foot | | | series, 3 views, PA, oblique and lateral views | | + + + + + | Procedure Note | + + | Rinku Lewis Conversion - 12/17/2018 12:31 AM PDT [facility] | | 1985 | | XR FOOT LEFT | | 09/10/2014 10:31 AM | | | | INDICATION: Foot pain | | | | COMPARISON: None | | | | TECHNIQUE: Left foot series, 3 views, PA, oblique and lateral views | | | | IMPRESSION: | | FINDINGS/ IMPRESSION: No acute fracture or dislocation. | | | | No bone, joint or soft tissue abnormality. | | | | | + + documented in this encounter Visit Diagnoses + + | Diagnosis | + + | Metatarsalgia of left foot Enthesopathy of ankle and tarsus, unspecified | + + | Left foot pain Pain in limb | + + documented in this encounter"
--- OUTSIDE RECORDS SUMMARY | ~2019-11-14 | XMS | Encounter Summary ---
Demographics + + + | Address | [address] | | | [place] [address] | + + + | Home Phone | | + + + | Preferred Language | Unknown | + + + | Marital Status | Single | + + + | Latter-Day Affiliation | Unknown | + + + | Race | Unknown | + + + | Ethnic Group | Unknown | + + + Author + + + | Author | [facility] | | | and [place] | + + + | Organization | [facility] | | | and [...] Team Providers + +------+ + | Care Group Exercise Instructor Name | Role | Phone | + +------+ + | No Physician | PCP | Unavailable | + +------+ + Reason for Visit + + + | Reason | Comments | + + + | Neck Pain | right side of neck possibley pinched a nerve a couple days ago | | | while working out | + + + Encounter Details +--------+ + + + + | Date | Type | Department | Care Team | Description | +--------+ + + + + | 09/23/ | Hospital | [facility] | Carmen Bonilla, | Neck strain, initial | | 2013 | Encounter | [facility] | NUCLEAR MEDICINE PHYSICIAN [address] | encounter (Primary | | | | [address] | [place], | Dx) | | | | [address] | [place] [address] | | | | | [place] | [phone] | | | | | [address] | | | | | | [phone] | | | +--------+ + + + [...] + + documented as of this encounter Last Filed Vital Signs + + + + + | Vital Sign | Reading | Time Taken | Comments | + + + + + | Blood Pressure | 125/64 | 09/23/2013 2:28 PM | | | | | PDT | | + + + + + | Pulse | 66 | 09/23/2013 2:28 PM | | | | | PDT | | + + + + + | Temperature | 36.8 C (98.3 F) | 09/23/2013 2:28 PM | | | | | PDT | | + + + + + | Respiratory Rate | - | - | | + + + + + | Oxygen Saturation | 98% | 09/23/2013 2:28 PM | | | | | PDT | | + + + + + | Inhaled Oxygen | - | - | | | Concentration | | | | + + + + + | Weight | 95.3 kg (210 lb) | 09/23/2013 2:28 PM | | | | | PDT | | + + + + + | Height | 182.9 cm (6') | 09/23/2013 2:28 PM | | | | | PDT | | + + + + + | Body Mass Index | 28.48 | 09/23/2013 2:28 PM | | | | | PDT | | + + + + + documented in this encounter Discharge Instructions Instructions Carmen Bonilla ARNP - 09/23/2013Medications as prescribed, continue with sy mptomatic support as discussed to include hot compresses to the back of her neck several rg es per day. Avoid exercising for the next week and rest. Follow-up here with your primary care provider if worse or no improvement. AttachmentsThe following attachments cannot be sent through Care Everywhere.NECK PROBLEMS: RELIEVING YOUR SYMPTOMS (YEMENI)documented in this encounter Medications at Time of Discharge + + + +---------+ + + | Medication | Sig | Dispensed | Refills | Start | End Date | | | | | | Date | | + + + +---------+ + + | methocarbamol | Take 1 tablet by | 15 | 0 | 09/24/19 | | | (ROBAXIN) 750 mg | mouth 3 times daily | tablet | | 14 | 4 | | tablet | for 5 days. | | | | | + + + +---------+ + + documented as of this encounter Miscellaneous Notes Provider Notes - Carmen Bonilla ARNP - 09/23/2013 2:35 PM PDT Urgent Care Provider Note 09/23/2013 History CC: Neck Pain HPI: Lamberto Darden is a 28 y.o. male who presents to the for evaluation of right-sided neck pains for the past couple of days after working out. He reports that the pain started initially in his shoulder blades and has been a constant dull ache with occasional shooting pains into the right side of his neck. There has been no spinal tenderness. He states it w as difficult initially to move his neck however now he has full range of motion. He is take n ibuprofen and used a hot pack to the back of his head without much relief. 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 No additional concerns today. PMH: No past medical history on file. PSH: No past surgical history on file. Medications: Previous Medications No medications on file Allergies: He has no allergies on file.. Social History: He reports that he has been smoking Cigarettes. He has been smoking about .5 packs per day. He does not have any smokeless tobacco history on file.. Review of Systems Eyes: Negative for visual disturbance. Musculoskeletal: Negative for back pain and gait problem. Positive for neck pains Skin: Negative for color change. Neurological: Negative for dizziness and headaches. Physical Exam Vital Signs: Temp: 36.8 C (98.3 F) Pulse: 66 BP: 125/64 mmHg SpO2: 98 % Physical Exam Constitutional: He appears well-developed and well-nourished. No distress. HENT: Head: Normocephalic and atraumatic. Neck: Normal range of motion and full passive range of motion without pain. Neck supple. Mu scular tenderness present. No spinous process tenderness present. Cardiovascular: Normal rate, regular rhythm and normal heart sounds. Pulmonary/Chest: Effort normal and breath sounds normal. Musculoskeletal: Cervical back: He exhibits tenderness. He exhibits normal range of motion and no spasm . Neurological: He is alert. GCS eye subscore is 4. GCS verbal subscore is 5. GCS motor subsc ore is 6. Skin: Skin is warm. He is not diaphoretic. Psychiatric: He has a normal mood and affect. Course and Medical Decision Making Lamberto Darden presented to the Urgent Care for evaluation, and he was triaged to room UC0 6. I reviewed the nursing notes, and he was evaluated by me. Chief Complaint Patient presents with Neck Pain right side of neck possibley pinched a nerve a couple days ago while working out Impression: 1. Neck strain, initial encounter Plan: Discharge Instructions Medications as prescribed, continue with symptomatic support as discussed to include hot co mpresses to the back of her neck several times per day. Avoid exercising for the next week and rest. Follow-up here with your primary care provider if worse or no improvement. Discharge References/Attachments NECK PROBLEMS: RELIEVING YOUR SYMPTOMS (YEMENI) Follow-up Information Please follow up. (As needed if symptoms worsen) New Prescriptions METHOCARBAMOL (ROBAXIN) 750 MG TABLET Take 1 tablet by mouth 3 times daily for 5 days. documented in this encounter Plan of Treatment Not on filedocumented as of this encounter Visit Diagnoses + + | Diagnosis | + + | Neck strain, initial encounter - Primary | + + documented in this encounter"
--- OUTSIDE RECORDS SUMMARY | ~2019-11-14 | XMS | Clinical Summary ---
Demographics + + + | Address | [address] | | | [place] [address] | + + + | Home Phone | | + + + | Preferred Language | Unknown | + + + | Marital Status | Single | + + + | Muslim Affiliation | Unknown | + + + | Race | Unknown | + + + | Ethnic Group | Unknown | + + + Author + + + | Author | [facility] | | | and [place] | + + + | Organization | [facility] | | | and [...] Team Providers + +------+ + | Care Counter Intelligence Technician Name | Role | Phone | + +------+ + | Renetta Goodman MD | PCP | | + +------+ + Allergies No Known Allergies Medications No known medications Active Problems Not on file Encounters +--------+ + + + + | Date | Type | Specialty | Care Team | Description | +--------+ + + + + | 09/29/ | Emergency | Emergency Medicine | Kizzy Lopez, | Stress fracture of | | 2019 | | | Steve Armas | metatarsal bone of | | | | | MD Cameron | left foot, initial | | | | | | encounter (Primary | | | | | | Dx) | +--------+ + + + + from Last 3 Months Social History + + + +--------+------+ | Tobacco Use | Types | Packs/Day | Years | Date | | | | | Used | | + + + +--------+------+ | Former Smoker | Cigarettes | 0 | | | + + + +--------+------+ + +---+---+---+ | Smokeless Tobacco: | | | | | Never Used | | | | + +---+---+---+ + + | Comments: e cigarette | + + + + +---------+ + | Alcohol Use | Drinks/Week | oz/Week | Comments | + + +---------+ + | Not Currently | | | | + + +---------+ + + + + | Sex Assigned at | Date Recorded | | | | + + + | Not on file | | + + + Last Filed Vital Signs + + + + + | Vital Sign | Reading | Time Taken | Comments | + + + + + | Blood Pressure | 105/60 | 09/30/2019 4:38 PM | | | | | PDT | | + + + + + | Pulse | 77 | 09/30/2019 4:38 PM | | | | | PDT | | + + + + + | Temperature | 36.4 C (97.5 F) | 09/30/2019 3:28 PM | | | | | PDT | | + + + + + | Respiratory Rate | 20 | 09/30/2019 4:38 PM | | | | | PDT | | + + + + + | Oxygen Saturation | 97% | 09/30/2019 4:38 PM | | | | | PDT | | + + + + + | Inhaled Oxygen | - | - | | | Concentration | | | | + + + + + | Weight | 107.5 kg (236 lb | 09/30/2019 3:28 PM | | | | 15.9 oz) | PDT | | + + + + + | Height | 182.9 cm (6') | 09/17/2016 1:42 AM | | | | | PDT | | + + + + + | Body Mass Index | 32.14 | 09/17/2016 1:42 AM | | | | | PDT | | + + + + + Plan of Treatment + + +-------+ + | Health Maintenance | Due Date | Last | Comments | | | | Done | | + + +-------+ + | Vaccine: | | | | | Dtap/Tdap/Td (1 - | 3 | | | | Tdap) | | | | + + +-------+ + | Vaccine: Influenza | | | | | (#1) | 0 | | | + + +-------+ + Procedures + +--------+ + + + | Procedure Name | Priori | Date/Time | Associated Diagnosis | Comments | | | ty | | | | + +--------+ + + + | XR FOOT LEFT 3 + VW | DOUGLAS | 09/30/2019 | | Results for this | | | | 3:49 PM | | procedure are in the | | | | PDT | | results section. | + +--------+ + + + | ED INFORMATION | Routin | 09/30/2019 | | | | EXCHANGE | e | 3:24 PM | | | | | | PDT | | | + +--------+ + + + +---+--------+ | | | | | Proced | | | ure | | | Note - | | | Joshua, | | | Lab In | | | | | | Hlseve | | | n - | | | | | | 2019 | | | 3:25 | | | PM PDT | | | | | | Format | | | ting | | | of | | | this | | | note | | | might | | | be | | | differ | | | ent | | | from | | | the | | | origin | | | al.COL | | | LECTIV | | | E?NOTI | | | FICATI | | | ON?05/ | | | | | | 0 | | | 15:23? | | | DARDEN | | | , | | | GEOFFR | | | EY | | | W?MRN: | | | | | | [id number] | | | [id number] | | | riteri | | | a Met | | | | | | PDMPSe | | | curity | | | and | | | Safety | | | No | | | recent | | | | | | Securi | | | ty | | | Events | | | | | | curren | | | tly on | | | | | | fileED | | | Care | | | Guidel | | | inesTh | | | ere | | | are | | | curren | | | tly no | | | ED | | | Care | | | Guidel | | | juaquin | | | for | | | this | | | patien | | | t. | | | Please | | | check | | | your | | | facili | | | ty's | | | medica | | | l | | | record | | | s | | | system | | | .Presc | | | riptio | | | n Drug | | | | | | Report | | | (12 | | | Mo.)Rx | | | | | | Detail | | | sFill | | | Date | | | Drug | | | Descri | | | ption | | | Qty. | | | Prescr | | | iber | | | CS MED | | | | | | 2020-0 | | | 3-09 | | | BUPREN | | | ORPHIN | | | -NALOX | | | ON 8-2 | | | MG SL | | | 14 | | | BERNAR | | | D | | | ROSE | | | 3 0 | | | 2020-0 | | | 2-27 | | | BUPREN | | | ORPHIN | | | -NALOX | | | ON 8-2 | | | MG SL | | | 14 | | | BERNAR | | | D | | | ROSE | | | 3 0 | | | 2019-1 | | | 2-19 | | | BUPREN | | | ORPHIN | | | -NALOX | | | ON 8-2 | | | MG SL | | | 42 | | | BERNAR | | | D | | | ROSE | | | 3 0 | | | 2019-1 | | | 2-06 | | | BUPREN | | | ORPHIN | | | -NALOX | | | ON 8-2 | | | MG SL | | | 14 | | | BERNAR | | | D | | | ROSE | | | 3 0 | | | 2019-0 | | | 9-27 | | | BUPREN | | | ORPHIN | | | -NALOX | | | ON 8-2 | | | MG SL | | | 56 | | | BERNAR | | | D | | | ROSE | | | 3 0 | | | 2019-0 | | | 9-06 | | | BUPREN | | | ORPHIN | | | -NALOX | | | ON 8-2 | | | MG SL | | | 42 | | | BERNAR | | | D | | | ROSE | | | 3 0 | | | 2019-0 | | | 8-16 | | | BUPREN | | | ORPHIN | | | -NALOX | | | ON 8-2 | | | MG SL | | | 42 | | | KRISTO | | | PHER | | | STANTO | | | N 3 0 | | | 2019-0 | | | 7-25 | | | BUPREN | | | ORPHIN | | | -NALOX | | | ON 8-2 | | | MG SL | | | 44 | | | KRISTO | | | PHER | | | STANTO | | | N 3 0 | | | 2019-0 | | | 7-03 | | | BUPREN | | | ORPHIN | | | -NALOX | | | ON 8-2 | | | MG SL | | | 44 | | | KRISTO | | | PHER | | | STANTO | | | N 3 0 | | | 2019-0 | | | 6-14 | | | BUPREN | | | ORPHIN | | | -NALOX | | | ON 8-2 | | | MG SL | | | 40 | | | KRISTO | | | PHER | | | STANTO | | | N 3 | | | 480 Rx | | | | | | Summar | | | yMetri | | | c | | | Count | | | CS | | | II-V | | | Rx 10 | | | CS-II | | | Rx 0 | | | Quanti | | | ty | | | Dispen | | | sed | | | 352 | | | Unique | | | | | | Prescr | | | ibers | | | 2 | | | Unique | | | | | | Pharma | | | cies 1 | | | | | | Benzos | | | 0 | | | Opioid | | | s 1 | | | Long | | | Acting | | | | | | Opioid | | | s 0 | | | E.D. | | | Visit | | | Count | | | (12 | | | mo.)Fa | | | cility | | | | | | Visits | | | Low | | | Acuity | | | | | | [facility] | | | | | | [facility] | | | anding | | | ED 1 | | | 0 | | | Total | | | 1 0 | | | Note: | | | Visits | | | | | | indica | | | te | | | total | | | known | | | visits | | | . | | | Medica | | | id Low | | | | | | Acuity | | | Dx | | | are | | | the | | | number | | | of | | | primar | | | y | | | diagno | | | ses on | | | the | | | Medica | | | id's | | | Low | | | Acuity | | | dx | | | list. | | | | | | Recent | | | | | | Emerge | | | ncy | | | Depart | | | ment | | | Visit | | | [facility] | | | yDate | | | Facili | | | ty | | | City | | | State | | | Type | | | Diagno | | | ses or | | | Chief | | | | | | Compla | | | int | | | May | | | 29, | | | 2020 | | | [facility] | | | | | | [facility] | | | anding | | | ED | | | [place] | | | [place] | | | Emerge | | | ncy | | | Foot | | | Pain | | | Recent | | | | | | Inpati | | | ent | | | Visit | | | [facility] | | | yNo | | | record | | | ed | | | inpati | | | ent | | | visits | | | . Care | | | | | | TeamPr | | | ovider | | | | | | Specia | | | lty | | | Phone | | | Fax | | | Servic | | | e | | | Dates | | | ROYAL, | | | MARY | | | , | | | CASE ASSEMBLER-C | | | Nurse | | | Practi | | | tioner | | | : | | | Family | | | ([phone]) | | | | | | [phone] | | | [phone] | | | Curren | | | t | | | [facility] | | | tive | | | Portal | | | This | | | patien | | | t has | | | regist | | | ered | | | at the | | | | | | [facility] | | | | | | [facility] | | | anding | | | ED | | | Emerge | | | ncy | | | Depart | | | ment | | | For | | | more | | | inform | | | ation | | | visit: | | | | | | https: | | | //secu | | | re.col | | | lectiv | | | emedic | | | al.com | | | /notif | | | y/02cd | | | [id number] | | | [phone] | | | [phone] | | | [phone] | | | [id number] | | | ea | | | PLEASE | | | NOTE: | | | 1. | | | Any | | | care | | | recomm | | | endati | | | ons | | | and | | | other | | | clinic | | | al | | | inform | | | ation | | | are | | | provid | | | ed as | | | guidel | | | juaquin | | | or for | | | | | | histor | | | ical | | | purpos | | | es | | | only, | | | and | | | provid | | | ers | | | should | | | | | | exerci | | | se | | | their | | | own | | | clinic | | | al | | | judgme | | | nt | | | when | | | provid | | | ing | | | care. | | | 2. | | | You | | | may | | | only | | | use | | | this | | | inform | | | ation | | | for | | | purpos | | | es of | | | treatm | | | ent, | | | paymen | | | t or | | | health | | | care | | | operat | | | ions | | | activi | | | ties, | | | and | | | subjec | | | t to | | | the | | | limita | | | tions | | | of | | | applic | | | able | | | Colle[facility] | | | tive | | | Polici | | | es. | | | 3. | | | You | | | should | | | | | | consul | | | t | | | direct | | | ly | | | with | | | the | | | organi | | | zation | | | that | | | provid | | | ed a | | | care | | | guidel | | | ine or | | | other | | | | | | clinic | | | al | | | histor | | | y with | | | any | | | questi | | | ons | | | about | | | additi | | | onal | | | inform | | | ation | | | or | | | accura | | | cy or | | | comple | | | teness | | | of | | | inform | | | ation | | | provid | | | ed.? | | | 2019 | | | [facility] | | | tive | | | Medica | | | l | | | Techno | | | logies | | | , Inc. | | | - | | | [email or web address] | | | llecti | | | vemedi | | | [email or web address] | | | m | +---+--------+ from Last 3 Months Results XR Foot Left 3 + Vw (09/30/2019 3:49 PM PDT) + + | Specimen | + + | | + + + + + | Impressions | Performed At | + + + | There is a subacute fracture involving the proximal diaphysis of the | [facility] | | 4th metatarsal with callus formation. Given history, this probably | | | reflects a stress fracture. Signed by: Maricruz Long, | | | Nick Sign Date/Time: 09/30/2019 3:59 PM | | + + + + + + | Narrative | Performed At | + + + | LEFT FOOT THREE VIEWS CLINICAL INFORMATION: Foot pain for | [facility] | | four days, no injury. Hurts to bear weight COMPARISON: XR FOOT | | | LEFT (09/10/2014); FINDINGS: Periosteal reaction is noted along | | | the shaft of the 4th metatarsal. There is a subtle lucency crossing | | | the proximal shaft. No displacement is noted. There is no | | | significant angulation. There are no osseous erosions noted. No | | | foreign bodies are present. | | + + + + + | Procedure Note | + + | Joshua, Rad Results In - 09/30/2019 4:02 PM PDT | | LEFT FOOT THREE VIEWS | | | | CLINICAL INFORMATION: | | Foot pain for four days, no injury. Hurts to bear weight | | | | COMPARISON: | | XR FOOT LEFT (09/10/2014); | | | | FINDINGS: | | Periosteal reaction is noted along the shaft of the 4th metatarsal. | | There is a subtle lucency crossing the proximal shaft. No displacement | | is noted. There is no significant angulation. There are no osseous | | erosions noted. No foreign bodies are present. | | | | IMPRESSION: | | There is a subacute fracture involving the proximal diaphysis of the | | 4th metatarsal with callus formation. Given history, this probably | | reflects a stress fracture. | | | | | | | | Signed by: Maricruz Long Richard | | Sign Date/Time: 09/30/2019 3:59 PM | + + + +---------+ + + | Performing | Address | City/State/Zipcode | Phone Number | | Organization | | | | + +---------+ + + | [facility] | | | | + +---------+ + + from Last 3 Months Insurance + +--------+ +--------+-------+---------+--------+ | Payer | Benefi | Subscriber | Effect | Phone | Address | Type | | | t Plan | ID | rachel | | | | | | / | | Dates | | | | | | Group | | | | | | + +--------+ +--------+-------+---------+--------+ | COORDINATED CARE | COORDI | [id number] | 07/03/19 | | | Medica | | MEDICAID HMO | NATED | | 14-Pre | | | id | | | CARE | | sent | | | | | | APPLE | | | | | | | | HEALTH | | | | | | | | [place] | | | | | | + +--------+ +--------+-------+---------+--------+ | HIGHTOWER MEDICAID HMO | HIGHTOWER | [id number] | 08/03/19 | | | Medica | | | APPLE | 5 | 20-Pre | | | id | | | | | sent | | | | | | HEALTH | | | | | | | | [place] | | | | | | + +--------+ +--------+-------+---------+--------+ + +--------+ +--------+ + + | Guarantor Name | Accoun | Relation to | Date | Phone | Billing Address | | | t Type | Patient | of | | | | | | | | | | + +--------+ +--------+ + + | Lamberto Darden | Person | Self [birth year] | [address] | | Sp | bartolo/Fam | | 1985 | [phone], | | | dex | | | 7 (Home) | [place] [address] | + +--------+ +--------+ + + | Lamberto Darden | Person | Self | [birth year] | [address] | | Sp | al/Fam | | 1984 | [address], | | | dex | | | 7 ([place]) | [place] [id number] | + +--------+ +--------+ + + Advance Directives + + + + + | Type | Date Recorded | Patient | Explanation | | | | Oracle Fusion Developer | | + + + + + | Power of | | | | | General Assembler | | | | + + + + + | Advance | 09/30/2019 3:45 | | | | Directive | PM | | | + + + + +"
--- OUTSIDE RECORDS SUMMARY | ~2019-11-14 | XMS | Encounter Summary ---
Demographics + + + | Address | [address] [facility] | | | [place] [address] | + + + | Home Phone | | + + + | Preferred Language | Unknown | + + + | Marital Status | Single | + + + | Orthodoxy Affiliation | Unknown | + + + | Race | Unknown | + + + | Ethnic Group | Unknown | + + + Author + + + | Author | [facility] | | | and [place] | + + + | Organization | [facility] | | | and [...] Team Providers + +------+ + | Care Hvac Sheet Metal Installer Name | Role | Phone | + +------+ + | No, Physician | PCP | Unavailable | + +------+ + Encounter Details +--------+ + + + + | Date | Type | Department | Care Team | Description | +--------+ + + + + | 12/04/ | Orders Only | [facility] | Jaime Gonzáles | | | 2016 | | [address] | MD Jayme [address] | | | | [place] | [place] | | | | | [address] | [place] [address] | | | | | [phone] | [phone] | | | | | | | | +--------+ + + + [...] + + documented as of this encounter Plan of Treatment Not on filedocumented as of this encounter Procedures + +--------+ + + + | Procedure Name | Priori | Date/Time | Associated Diagnosis | Comments | | | ty | | | | + +--------+ + + + | HEPATITIS C VIRUS | Routin | 12/05/2015 | | Results for this | | RNA, PCR, | e | 11:23 AM | | procedure are in the | | QUANTITATIVE (REFLEX | | PDT | | results section. | | TO GEN) | | | | | + +--------+ + + + documented in this encounter Results HCV RNA Quant, PCR, Rflx Genotyping (12/05/2015 11:23 AM PDT) + + + + + + | Component | Value | Ref Range | Performed | Pathologist | | | | | At | Signature | + + + + + + | HCV-LOG 10 | 3.5 (A) | {Log_IU}/mL | EXTERNAL | | | | | | LAB | | + + + + + + | HCV | 3260 (A)Comment: | [iU]/mL | EXTERNAL | | | Quantitativ | REPORTABLE RANGE HCV RNA | | LAB | | | e | 1.2 TO 8.0 LOG IU/ML | | | | | | (15 TO | | | | | | 100,000,000IU/ML). | | | | | | THIS ASSAY WAS PERFORMED | | | | | | USING THE FDA APPROVED | | | | | | PABLO | | | | | | COBASAMPLIPREP/CECILY | | | | | | TAQMAN HCV TEST, V2.0. | | | | | | THE CECILY | | | | | | AMPLIPREP/COBASTAQMAN | | | | | | HCV TEST, V2.0 IS NOT | | | | | | INTENDED FOR USE A | | | | | | SCREENING TEST FORTHE | | | | | | PRESENCE OF HCV IN BLOOD | | | | | | OR BLOOD PRODUCTS. | | | | + + + + + + | HCV | TYPE 1AComment: HCV | | EXTERNAL | | | Genotype | GENOTYPE WAS DETERMINED | | LAB | | | | BY RT-PCR AND FERROCENE | | | | | | LABELLED PROBE.THIS | | | | | | ASSAY DETECTS AND | | | | | | DIFFERENTIATES THE 6 | | | | | | MAJOR HCV GENOTYPES | | | | | | ANDTHEIR MOST COMMON | | | | | | SUBTYPES (1A, 1B, 2A/C, | | | | | | 2B, 3, 4, 5, 6).THIS | | | | | | TEST WAS DEVELOPED AND | | | | | | ITS PERFORMANCE | | | | | | CHARACTERISTICS | | | | | | DETERMINEDBY [facility] | | | | | | [facility]ISION OF LABORATORY | | | | | | MEDICINE. IT HAS NOT | | | | | | BEENAPPROVED OR CLEARED | | | | | | BY THE [place] FOOD AND | | | | | | DRUG ADMINISTRATION. | | | | | | THISTEST SHOULD NOT BE | | | | | | REGARDED | | | | | | INVESTIGATIONAL OR FOR | | | | | | RESEARCH USE. | | | | + + + + + + + + | Specimen | + + | | + + + +---------+ + + | Performing | Address | City[facility]State[facility] | Phone Number | | Organization | | | | + +---------+ + + | EXTERNAL LAB | | | | + +---------+ + + documented in this encounter Visit Diagnoses Not on filedocumented in this encounter"
--- OUTSIDE RECORDS SUMMARY | ~2019-11-14 | XMS | Encounter Summary ---
Demographics + + + | Address | [address] | | | [place] [address] | + + + | Home Phone | | + + + | Preferred Language | Unknown | + + + | Marital Status | Single | + + + | Congregational Affiliation | Unknown | + + + | Race | Unknown | + + + | Ethnic Group | Unknown | + + + Author + + + | Author | [facility] | | | and [place] | + + + | Organization | [facility] | | | [...] Team Providers + +------+ + | Care Internal Affairs Commander Name | Role | Phone | + +------+ + PCP | Unavailable | + +------+ + Encounter Details +--------+ + + + + | Date | Type | Department | Care Team | Description | +--------+ + + + + | 09/03/ | Emergency | [facility] | Conversion | Pain in Limb | | 2009 | | [facility] | Transaction, | | | | | EM[facility]Y [facility]ENTER | Provider Unknown | | | | | [address] [facility] | | | | | | [place], [place] | (Fax) | | | | | [address] | | | | | | [phone] | | | +--------+ + + + [...] + | Diagnosis | + + | Pain in soft tissues of limb Pain in limb | + + documented in this encounter"
--- OUTSIDE RECORDS SUMMARY | ~2019-11-14 | XMS | Encounter Summary ---
Demographics + + + | Address | [address] | | | [place] [address] | + + + | Home Phone | | + + + | Preferred Language | Unknown | + + + | Marital Status | Single | + + + | Anabaptist Affiliation | Unknown | + + + [...] Team Providers + +------+ + | Care Railroad Engineer Name | Role | Phone | + +------+ + PCP | Unavailable | + +------+ + Encounter Details +--------+ + + + + | Date | Type | Department | Care Team | Description | +--------+ + + + + | 04/05/ | Emergency | [facility] | Carlos Enrique Tran, | Altered mental | | 2010 | | MEDICAL CENTER | MD [address] | status; | | | | EMERGENCY CENTER | [place], [place] | Methamphetamine | | | | [address] [facility] | [address] | abuse; Insomnia; | | | | [place], [place] | | Psychosis (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
--- OUTSIDE RECORDS SUMMARY | ~2019-11-14 | XMS | Encounter Summary ---
Demographics + + + | Address | [address] [facility] | | | [place] [address] | + + + | Home Phone | | + + + | Preferred Language | Unknown | + + + | Marital Status | Single | + + + | Baptism Affiliation | Unknown | + + + | Race | Unknown | + + + | Ethnic Group | Unknown | + + + Author + + + | Author | [facility] | | | and [place] | + + + | Organization | [facility] | | | [...] Team Providers + +------+ + | Care Bleach Packer Name | Role | Phone | + +------+ + | No, Physician | PCP | Unavailable | + +------+ + Encounter Details +--------+ + + + + | Date | Type | Department | Care Team | Description | +--------+ + + + + | 09/16/ | Emergency | [facility] | Jenna Win, | Elevated blood | | 2017 - | | [facility] | MD Guevara Esposito | pressure; Tendonitis | | | | EMERGENCY [place] | [place] [address] | of elbow or forearm | | 05/17/ | | [address] | [phone] | | | 2016 | | [place] | | | | | | [address] | | | | | | [phone] | | | +--------+ + + + + Social History + + + +--------+------+ | Tobacco Use | Types | Packs/Day | Years | Date | | | | | Used | | + + + +--------+------+ | Former Smoker | Cigarettes | 0 | | | + + + +--------+------+ + + | Comments: e cigarette | + + + + + | Sex Assigned at | Date Recorded | | | | + + + | Not on file | | + + + documented as of this encounter Last Filed Vital Signs + + + + + | Vital Sign | Reading | Time Taken | Comments | + + + + + | Blood Pressure | 125/72 | 09/17/2016 1:42 AM | | | | | PDT | | + + + + + | Pulse | 78 | 09/17/2016 1:42 AM | | | | | PDT | | + + + + + | Temperature | 36.8 C (98.3 F) | 09/17/2016 1:42 AM | | | | | PDT | | + + + + + | Respiratory Rate | 18 | 09/17/2016 1:42 AM | | | | | PDT | | + + + + + | Oxygen Saturation | - | - | | + + + + + | Inhaled Oxygen | - | - | | | Concentration | | | | + + + + + | Weight | 108 kg (238 lb 1.6 | 09/17/2016 1:42 AM | | | | oz) | PDT | | + + + + + | Height | 182.9 cm (6') | 09/17/2016 1:42 AM | | | | | PDT | | + + + + + | Body Mass Index | 32.29 | 09/17/2016 1:42 AM | | | | | PDT | | + + + + + documented in this encounter ED Notes Bijan Meng PA-C - 09/16/2016 11:58 PM PDTFormatting of this note might be different fro m the original. ED Provider Notes by TYRON Samson at 09/16/162357 Author: TYRON Samson Service: Emergency Department Author Type: Physician Bevel Polisher Filed: 09/17/16 0036 Date of Service: 09/16/162357 Status: Attested Putty And Patch Worker: TYRON Samson (Physician Bevel Polisher) Cosigner: Jenna Win MD at [phone] Attestation signed by Jenna Win MD at 09/17/16 4744 I have reviewed the note and supervised the mid-level provider. Procedures [facility] EMERGENCY DEPARTMENT IN [place] History of Present Illness Patient Identification Lamberto Darden is a 31 y.o. male. Patient information was obtained from the patient. History/Exam limitations: None. Patient presented to the Emergency Department by: Car Chief Complaint Chief Complaint Patient presents with Wrist Pain no hx of trauma The patient presents with a chief complaint of- Left forearm pain -after cooking for 14 ho urs at work on thursday. Rates overall symptoms at 4/10 when the area is palpated or with ce rtain turns of the wrist.He first noticed symptoms this morning. He has not taken anything for symptoms. He denies injury other than overuse. The patient denies other symptoms. The patient denies the need for pain management. PCP: PER PT NONE No Known Allergies Vaccinations: UTD Medications prior to arrival: refer below Past Medical History Diagnosis Date Blind left eye Past Surgical History Procedure Laterality Date Knee arthroscopy Unlisted procedure arthroscopy Prior to Admission medications Not on File ROS Review of Systems Constitutional: Negative for: fever, chills, fatigue, sweats or weight loss Eyes: Negative for: decreased vision or irritated eyes Nose: Negative for: nosebleed Throat: Negative for: mouth sores Cardiovascular/Respiratory: Negative for: chest pain, shortness of breath, cough Gastrointestinal: Negative for: abdominal pain, vomiting, diarrhea, black or bloody stools Genitourinary: Negative for: dysuria, hematuria, urinary problems Musculoskeletal: Positive for: Forearm pain Skin: Negative for: laceration or lesion Neuro and psych: Negative for: fainting, Head injury, seizure, trouble walking Endocrine/Heme/Lymph: Negative for: swollen lymph nodes, easy bruising Physical Exam BP 133/77 mmHg | Pulse 74 | Temp(Src) 98.3 F (36.8 C) (Oral) | Resp 18 | Ht 1.829 m (6' ) | Wt 108 kg (238 lb 1.6 oz) | BMI 32.28 kg/m2 | SpO2 100% Elevated blood pressure Pulse Oximetry interpretation: none General: Alert and oriented x 3 and in no apparent distress Eyes: Normal inspection, pupils equal and round, non-icteric ENT: Ears- Normal Nose- Normal Pharynx- Normal Neck: Normal inspection- Without cervical vertebral body tenderness Supple No lymphadenopathy No meningismus Cardio: Normal S1/S2, Rate andRhythm. Without Murmur-- Respiratory: Ausculation: Clear and equal vesicular breath sounds. Without wheezing. Witho ut rhonchi. Without stridor. -- Percussion and Palpation of Lung lowry: Normal lungs reson ant percussion. MS: Upper and lower extremities: Full Active/Passive ROM and Strength-unless noted otherwi se. Negative vertebral TTP or Step-off. Negative for paraesthesias-. Negative loss of bowel or urine. Left Forearm- volar/ulnar aspect- tender to palpation. Without bruising, swelling, deform ity. Full ROM of the finger, wrist, elbow, shoulder. Full Sensation and capillary refill Back: Normal inspection:- without winged scapula Skin: Color normal Warm and dry No rash, bruising, erythema, swelling, lesions, abrasions, lacerations Neuro: Awake/alert/oriented to place and time. GCS 15 Cranial nerves II-XII intact No motor deficit: 5/5 in all extremities. No sensory deficit Normal gait: Walked into the ED Deep tendon reflexes = 2/4 Normal: Finger to nose, rapid finger movement ED Course Medical Decision Making and Emergency Department Course ED Department Course I have examined and spoke to the patient. I have discussed the patients chief complaint, di fferential diagnosis, and plan at this time. The patient expresses understanding and is agre eable. Differential Diagnosis: Soft tissue injury- tendonitis- vs- fracture, soft tissue injury The patient appears well. The patient is neurologically intact. Vitals are stable and non c oncerning. I do not feel further work up is necessary at this time. Ordered: Toradol I suspect the forearm was over used while using a wok at work for 14 hours. 0032: Patient relates that Toradol improved his pain. Ordered- Eyad Wrap. I have discussed h ome Traitement with Ibuprofen, Ice, elevation. He is cleared to return to work, but advised to follow recommendation and to return if things are not improving in 5 days, or sooner if t hey worsen at anytime. - Based upon the patient's history, physical exam, ED course, and diagnostic studies, I do not feel that there are current emergent medical conditions that warrant admission, transfe r, or further ED treatment at this time. I have discussed my clinical impression as well as the treatment plan with the patient. I have discussed any labs and imaging that have been done. I have specifically discussed the signs and symptoms that would constitute the need for an immediate return to the ED. I have answered any questions or concerns that the patient had to the best of my ability. I have discussed the importance of continued outpatient follow up as recommended , as well a s the importance of compliance with the discharge instructions. The patient has not voiced a concern about being discharged. The patient expresses underst anding and is agreeable. - Discharge Vitals: Show no acute concerns for hypovolemia or sepsis. Medications ketorolac (TORADOL) injection 60 mg (60 mg Intramuscular Given 09/17/16 0013) An attending physician has been available for consult during this visit. We have discussed any and all pertinent information. Specialist were consulted as necessary. Records Reviewed Nursing notes and any relevant past medical records. Labs & Radiology Results (All labs and Imaging have been reviewed by myself. Labs that were considered to be pertine nt to the patients emergent care were addressed accordingly . A referral has been made when appropriate.) Laboratory Evaluation Results None Radiology and EKG Evaluation Imaging Results None Diagnosis & Disposition ED Diagnoses Final diagnoses Elevated blood pressure Tendonitis of elbow or forearm Disposition: ED Disposition Orders Discharge Condition at discharge: Stable Follow-up Information Follow up With Details Comments Contact Info [facility] Call to make an appointment, at the providers earliest availab le appointment., If symptoms don't improve [address] [place] [address] [facility]'s Emergency Department in [place] as needed or If symptoms worsen [address] [facility] [phone] Discharge Medications: New Prescriptions No new medications Discharge paperwork is not all inclusive of information, education, or reccomendations that the patient was advised on. TYRON Samson 09/17/16 0036 Jenna Win MD 09/17/16 0352 documented in this e ncounter Plan of Treatment Not on filedocumented as of this encounter Visit Diagnoses + + | Diagnosis | + + | Elevated blood pressure Elevated blood pressure reading without diagnosis of | | hypertension | + + | Tendonitis of elbow or forearm Other synovitis and tenosynovitis | + + documented in this encounter"
--- OUTSIDE RECORDS SUMMARY | ~2019-11-14 | XMS | Encounter Summary ---
Demographics + + + | Address | [address] | | | [place] [address] | + + + | Home Phone | | + + + | Preferred Language | Unknown | + + + | Marital Status | Single | + + + | Gnosticism Affiliation | Unknown | + + + | Race | Unknown | + + + | Ethnic Group | Unknown | + + + Author + + + | Author | [facility] | | | and [place] | + + + | Organization | [facility] | | [...] Team Providers + +------+ + | Care Clinical Unit Educator Name | Role | Phone | + +------+ + | Renetta Goodman MD | PCP | | + +------+ + Reason for Visit + + + | Reason | Comments | + + + | Foot Pain | L side, pt states pain ongoing for several days, worse yesterday. | | | Denies injury. | + + + Encounter Details +--------+ + + + + | Date | Type | Department | Care Team | Description | +--------+ + + + + | 09/29/ | Emergency | [facility] | Kizzy Lopez, | Stress fracture of | | 2019 | | [facility] | [place] [address] | metatarsal bone of | | | | EMERGENCY [place] | [place] [address] | left foot, initial | | | | [address] | [phone] | encounter (Primary | | | | [place] | | Dx) | | | | [address] | Steve Palmer, | | | | | [phone] | MD [address] | | | | | | [place], [place] | | | | | | [address] | | | | | | [phone] | | | | | | | [...] + + + + | Height | - | - | | + + + + + | Body Mass Index | 32.14 | 09/17/2016 1:42 AM | | | | | PDT | | + + + + + documented in this encounter Discharge Instructions AttachmentsThe following attachments cannot be sent through Care Everywhere.Fracture, Foot (Mongolian)documented in this encounter ED Notes Kizzy Lopez PA-C - 09/30/2019 3:30 PM PDT [facility] Department of Emergency Medicine 3:30 PM History of Present Illness Patient Identification Lamberto Darden is a 34 y.o. male. Patient information was obtained from patient History/Exam limitations: none Chief Complaint Chief Complaint Patient presents with Foot Pain L side, pt states pain ongoing for several days, worse yesterday. Denies injury. The patient presents to ED with complaints of left foot pain. Patient states that for the last 2 days, he has had left lateral foot pain without any known trauma but he is very activ e with his 2 young children. Pain is greatest in the morning and is worsened by weightbeari ng. Alleviated with rest. Denies any paresthesias, focal weakness, ankle pain, knee pain, falls, trauma, or any other symptoms. No similar symptoms in the past. No home care prior to arrival. He wants to make sure it is not broken. PCP: Reentta Goodman MD Past Medical History: Diagnosis Date Blind left eye Past Surgical History: Procedure Laterality Date KNEE ARTHROSCOPY OTHER SURGICAL HISTORY UNLISTED PROCEDURE ARTHROSCOPY Prior to Admission medications Not on File No Known Allergies Social History Socioeconomic History Marital status: Single Spouse name: Not on file Number of children: Not on file Years of education: Not on file Highest education level: Not on file Occupational History Not on file Social Needs Financial resource strain: Not on file Food insecurity: Worry: Not on file Inability: Not on file Transportation needs: Medical: Not on file Non-medical: Not on file Tobacco Use Smoking status: Former Smoker Packs/day: 0.00 Types: Cigarettes Tobacco comment: e cigarette Substance and Sexual Activity Alcohol use: Not on file Drug use: Not on file Comment: Drug use: No Sexual activity: Not on file Lifestyle Physical activity: Days per week: Not on file Minutes per session: Not on file Stress: Not on file Relationships Social connections: Talks on phone: Not on file Gets together: Not on file Attends yazidism service: Not on file Active member of club or organization: Not on file Attends meetings of clubs or organizations: Not on file Relationship status: Not on file Intimate partner violence: Fear of current or ex partner: Not on file Emotionally abused: Not on file Physically abused: Not on file Forced sexual activity: Not on file Other Topics Concern Not on file Social History Narrative Not on file No family history on file. Review of Systems Review of Systems Musculoskeletal: Negative for falls and joint pain. + L foot pain Neurological: Negative for tingling, sensory change and weakness. Endo/Heme/Allergies: Does not bruise/bleed easily. All other systems reviewed and are negative. Physical Exam BP 126/71 | Pulse 88 | Temp 36.4 C (97.5 F) (Oral) | Resp 18 | Wt 107.5 kg (236 lb 15.9 oz) | SpO2 96% | BMI 32.14 kg/m Vital signs interpretation: WNL Pulse Oximetry interpretation: normal Physical Exam Vitals signs and nursing note reviewed. Constitutional: Appearance: Normal appearance. HENT: Head: Normocephalic and atraumatic. Cardiovascular: Rate and Rhythm: Normal rate and regular rhythm. Pulses: Dorsalis pedis pulses are 2+ on the left side. Posterior tibial pulses are 2+ on the left side. Pulmonary: Effort: Pulmonary effort is normal. Breath sounds: Normal breath sounds. Musculoskeletal: Normal range of motion. Left hip: Normal. Left knee: Normal. Right ankle: Normal. Left ankle: Normal. Left lower leg: Normal. Left foot: Normal range of motion and normal capillary refill. Tenderness and bony tende rness present. No swelling, crepitus, deformity or laceration. Feet: Skin: General: Skin is warm. Capillary Refill: Capillary refill takes less than 2 seconds. Neurological: General: No focal deficit present. Mental Status: He is alert. Deep Tendon Reflexes: Babinski sign absent on the right side. Babinski sign absent on th e left side. Medical Decision Making and Emergency Department Course ED Department Course 34 y.o. male patient presents to ED with complaints of nontraumatic left foot pain since . No paresthesias or focal weakness. He is neurovascularly intact. Differentials i nclude but are not limited to fractures, dislocations, sprain/strain, fasciitis, versus othe r. With shared decision-making, is decided proceed with x-ray imaging. 4:19 PM. In review of x-rays, patient appears to have fourth metatarsal fracture, likely s tress fracture. Discussed imaging findings with patient. Will place in walking boot. He d eclined crutches. Supportive measures were discussed. Emphasized importance of close follo w-up with PCP. We discussed the emergent signs and symptoms that would necessitate a return to ED. All questions and concerns addressed. Patient understands and agrees with tx plan. P atient ready for discharge. Vitals: 09/30/19 1528 BP: 126/71 Pulse: 88 Resp: 18 Temp: 36.4 C (97.5 F) TempSrc: Oral SpO2: 96% Weight: 107.5 kg (236 lb 15.9 oz) Records Reviewed Old medical records. Nursing notes. Previous ED visits for similar and unrelated complaints AGNES alert reviewed Rx Details Fill Date Drug Description Qty. Prescriber CS MED 2019-07-11 BUPRENORPHIN-NALOXON 8-2 MG SL 14 AWAIS ROSE 3 0 2019-06-30 BUPRENORPHIN-NALOXON 8-2 MG SL 14 AWAIS ROSE 3 0 2019-04-21 BUPRENORPHIN-NALOXON 8-2 MG SL 42 AWAIS ROSE 3 0 2019-04-08 BUPRENORPHIN-NALOXON 8-2 MG SL 14 AWAIS ROSE 3 0 2019-01-28 BUPRENORPHIN-NALOXON 8-2 MG SL 56 AWAIS ROSE 3 0 2019-01-07 BUPRENORPHIN-NALOXON 8-2 MG SL 42 AWAIS ROSE 3 0 2018-12-17 BUPRENORPHIN-NALOXON 8-2 MG SL 42 SHEA 3 0 2018-11-25 BUPRENORPHIN-NALOXON 8-2 MG SL 44 SHEA 3 0 2018-11-03 BUPRENORPHIN-NALOXON 8-2 MG SL 44 SHEA 3 0 2018-10-15 BUPRENORPHIN-NALOXON 8-2 MG SL 40 SHEA 3 480 Laboratory Evaluation Results None I personally reviewed the lab results and they have been posted to the chart. Pertinent po sitive and negative findings have been addressed appropriately. Radiology and EKG Evaluation Xr Foot Left 3 + Vw Result Date: 09/30/2019 LEFT FOOT THREE VIEWS CLINICAL INFORMATION: Foot pain for four days, no injury. Hurts to be ar weight COMPARISON: XR FOOT LEFT (09/10/2014); FINDINGS: Periosteal reaction is noted along the shaft of the 4th metatarsal. There is a subtle lucency crossing the proximal shaft. No displacement is noted. There is no significant angulation. There are no osseous erosions noted. No foreign bodies are present. There is a subacute fracture involving the proximal diaphysis of the 4th metatarsal with ca llus formation. Given history, this probably reflects a stress fracture. Signed by: Maricruz Long, Nick Sign Date/Time: 09/30/2019 3:59 PM Diagonosis: 1. Stress fracture of metatarsal bone of left foot, initial encounter Disposition: discharge Follow-up Information Schedule an appointment as soon as possible for a visit with Renetta Goodman MD. Specialty: Family Medicine Contact information[facility] [address] [facility] [place] [address] [facility] [place]. Specialty: Emergency Medicine Why: If symptoms worsen Contact information: [address] [facility] [address] Dictation software, OrthoSensor, is used. Sound-alike errors may be present. If there is any dre bt, please refer to provider for clarification. Kizzy Lopez PA-C 09/30/19 1604 Associated attestation - Steve Plamer MD - 09/30/2019 9:49 PM PDTI have reviewed th e note and supervised the [employer] Sawyer. documented in this encounter Plan of Treatment + +------+--------+ + + | Name | Type | Priori | Associated Diagnoses | Date/Time | | | | ty | | | + +------+--------+ + + | ED INFORMATION | AGNES | Routin | | 09/30/2019 3:24 PM | | EXCHANGE | | e | | PDT | + +------+--------+ + + documented as of this encounter Procedures + +--------+ [...] | | | ON?[birth year] | | | [birth year] | | | 0 | | | 15:23? 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 | | | 2020 | | | [employer] | | | tive | | | Medica | | | l | | | [employer]o | | | logies | | | , Inc[employer] | | | - | | | [email or web address] | | | llecti | | | vemedi | | | [email or web address] | | | m | +---+--------+ documented in this encounter Results XR Foot [...] + + | Joshua, Rad Results In 09/30/2019 4:02 PM PDT | | LEFT [...] | | | | Signed by: Maricruz Long, Nick | | Sign Date/Time: 09/30/2019 3:59 PM | + + + +---------+ + + | Performing | Address | City/State[facility] | Phone Number | | Organization | | | | + +---------+ + + | [facility] | | | | + +---------+ + + documented in this encounter Visit Diagnoses + + | Diagnosis | + + | Stress fracture of metatarsal bone of left foot, initial encounter - Primary | + + documented in this encounter"
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
--- OUTSIDE RECORDS SUMMARY | ~2019-11-14 | XMS | Encounter Summary ---
Demographics + + + | Address | [address] [facility] [facility] | | | [place] [address] | + + + | Home Phone | | + + + | Preferred Language | Unknown | + + + | Marital Status | Single | + + + | Yazidi Affiliation | Unknown | + + + | Race | Unknown | + + + | Ethnic Group | Unknown | + + + Author + + + | Author | [facility] | | | and [place] | + + + | Organization | [facility] | | | and [place] | + + + | Address | Unknown | + + + | Phone | Unavailable | + + + Support + + +---------+ + | Name | Relationship | Address | Phone | + + +---------+ + | Adis Escobar | ECON | Unknown | | + + +---------+ + Care Team Providers + +------+ + | Care Director Child Abuse Therapy Name | Role | Phone | + +------+ + | No, Physician | PCP | Unavailable | + +------+ + Encounter Details +--------+ + + + + | Date | Type | Department | Care Team | Description | +--------+ + + + + | 06/13/ | Emergency | [facility] | Victor Hugo Tuttle, | Chest pain; Opiate | | 2014 | | MEDICAL CENTER | [address] | abuse, episodic; | | | | EMERGENCY CENTER | [place] [address] | Methamphetamine | | | | [address] | [phone] | abuse | | | | [facility] [place] | | | | | | [address] | | | | | | [phone] | | | +--------+ + + + [...] ED Notes Conversion Transaction, Provider Unknown - 06/13/2014 7:27 PM PSTFormatting of this note m ight be different from the original. ED Notes by Stephen Bustillo RN at 06/13/141926 Author: Stephen Bustillo RN Service: (none) Author Type: Registered Nurse Filed: 06/13/141954 Date of Service: 06/13/141926 Status: Signed Photograph Printer: Stephen Bustillo RN (Registered Nurse) Pt states OD was accidental. Pt states he did not intend to harm himself. Stephen Bustillo RN 06/13/141954 onver philipp Transaction, Provider Unknown - 06/13/2014 7:25 PM PST ED Notes by Stephen Bustillo RN at 06/13/141924 Author: Stephen Bustillo RN Service: (none) Author Type: Registered Nurse Filed: 06/13/141924 Date of Service: 06/13/141924 Status: Signed Photograph Printer: Stephen Bustillo RN (Registered Nurse) Pt on tele Stephen Bustillo RN 06/13/141924 Victor Hugo Harrell MD - 06/13/2014 7:10 PM PST ED Provider Notes by Victor Hugo Tuttle MD at 06/13/141909 Author: Victor Hugo Tuttle MD Service: (none) Author Type: Physician Filed: 06/17/14 0711 Date of Service: 06/13/141909 Status: Signed Photograph Printer: Victor Hugo Tuttle MD (Physician) [facility] Department of Emergency Medicine No flowsheet data found. History of Present Illness Patient Identification Laura Escobar is a 29 y.o. male. Patient information was obtained from patient. History/Exam limitations: none. Patient presented to the Emergency Department Car Room:07/04 Chief Complaint Chief Complaint Patient presents with Chest Pain Drug Overdose The patient presents to ED with complaints of CP. Onset of sx was today with a worsening co urse since that time. Pt describes the symptoms as "tightness" in his chest. Pt reports the pain onset after using heroin today (for the 1st time in 17 months). Pt reports he also inje cted meth 3 days ago. Pt also c/o R wrist pain (no known injury), and decreased urine output . Denies fevers, vomiting or other complaints. H/o L eye decreased vision Primary Care Doctor: PER PT NONE Past Medical History Diagnosis Date Blind left [...] -- 1.00 packs/day Smokeless tobacco: Never Used Alcohol Use: No Drug Use: Yes Special: Methamphetamines, Heroin, IV Sexual Activity: Partners: Female Other Topics Concern Not on file Social History Narrative No family history on file. Review of Systems No fevers No chills No nausea No vomiting No decreased vision No hearing loss No difficulty swallowing No difficulty breathing No headache Yes chest pain ("tightness") No abdominal pain Yes R wrist pain (no known injury) No weakness No rash Yes decreased urine output No difficulty with bowel movement Pt does not report other relevant complaints except as described in the HPI See HPI for further relevant details. All systems otherwise negative, except as recorded above and as recorded in the HPI. Physical Exam BP 153/80 | Pulse 118 | Temp(Src) 98.6 F (37 C) (Oral) | Resp 14 | SpO2 100% INTERPRETATION OF VITALS Hypertensive, tachycardic, otherwise normal Pulse Oximetry interpretation: Normal PHYSICAL EXAM Appearance: Alert. No acute distress. Head: Normal external exam Eyes: Normal inspection. ENT: Normal external ENT inspection. Neck: Supple. CVS: Tachycardic, normal heart rhythm. Heart sounds normal. Pulse normal. Respiratory: No respiratory distress. Breath sounds normal. No rales or rhonchi. Abdomen: Soft and nontender. No rebound or guarding. Back: Moves without difficulty. Skin: Skin warm. Extremities: No deformity. Fresh track peralta on L arm. Neuro: Oriented. Moves all extremities. Medical Decision Making and Emergency Department Course ED Medical Decision Making: Pt with substance abuse, now with chest pain, will check cardiac markers, and chest x-ray. ED Department Course: 8:45 PM. Reviewed imaging. CXR negative. 9:45 PM. Reviewed labs. Methamphetamine and opiate positive. 9:46 PM. Stephen RN, reports that troponin is 0.00. 9:53 PM. Pt recheck. Pt is stable and states that the CP is improved. On recheck pt's heart rate has improved. Discussed the lab and imaging results with the pt. Discussed options for admission for continued cardiac evaluation which would be the safest option. Pt declines ad mission but agrees to repeat troponin prior to d/c. Encouraged pt to f/u with PCP and return for worsening symptoms or other concerns. Pt is alert and able to make decisions and unders tand the consequences of his actions. He has chosen not to be admitted. 10:45 PM. Reviewed labs. Troponin is negative, will d/c pt. Visit Vitals Filed Vitals: 06/13/14 1900 06/13/14 1907 06/13/14 2214 BP: 154/90 153/80 117/70 Pulse: 153 118 77 Temp: 98.6 F (37 C) TempSrc: Oral Resp: 20 14 16 SpO2: 100% 100% 97% Records Reviewed Reviewed nursing triage notes available at time of initial pt encounter. Orders Placed Orders Placed This Encounter Procedures XR chest PA and lateral Cardiac Panel Drugs of Abuse Screen, UR (Hospital And ED Only) Tricyclic Antidepress (Hospital and ED Only) Amphetamine and Methamphetamine Troponin, iStat ISTAT Troponin EKG Medications aspirin chewable tablet 324 mg (324 mg Oral Given 06/13/14 1930) potassium chloride (K-DUR) CR tablet 20 mEq (20 mEq Oral Given 06/13/14 2238) Laboratory Evaluation Labs Reviewed [facility] CARD PANEL W/O TRP (ED ONLY) - Abnormal; Notable for the following: POTASSIUM 3.1 (*) GLUCOSE 137 (*) TBIL 1.7 (*) All other components within normal limits DRUGS OF ABUSE SCREEN,UR (HOSPTIAL USE ONLY) - Abnormal; Notable for the following: AMPHETAMINE/METHAMPHETAMINE POSITIVE (*) OPIATES POSITIVE (*) All other components within normal limits AMPHETAMINE AND METHAMPHETAMINE - Abnormal; Notable for the following: METHAMPHETAMINES POSITIVE (*) All other components within normal limits TRICYCLIC ANTIDEPRESS POC CARDIAC TROPONIN POC CARDIAC TROPONIN I have reviewed lab results from the emergency department workup and abnormal results have been posted to the chart. Pertinent positive and negative findings have been addressed appropriately. Radiology and EKG Evaluation EKG Interpretation Time: 1900 Rate: 127 Rhythm: sinus tachycardia Regular rhythm with non specific findings. Interpreted by Logan Tuttle MD Imaging Results XR chest PA and lateral (Final result) Result time: 06/13/14 20:30:00 Final result by Rad Results In Joshua (06/13/14 20:30:00) Impression: 1. Normal chest. Narrative: LAURA ESCOBAR XR CHEST 2 VIEW FRONTAL AND LATERAL 06/13/2014 7:53 PM History: 29 years. Male. Acute chest pain, presenting to the emergency room. Technique: PA and lateral views of the chest. Comparison: No prior chest radiography at this facility.. Findings: The lungs and pleural spaces are clear. The bronchovascular markings are normal . The cardiac silhouette and pulmonary vasculature are normal. Osseous structures are unrem arkable. The mediastinal contours and pulmonary emma are normal. The thoracic aorta is norm al. ED Diagnoses Final diagnoses Chest pain Opiate abuse, episodic Methamphetamine abuse Disposition: ED Disposition Orders Discharge Condition at discharge: Stable Follow-up Information Follow up With Details Comments Contact Info [facility] in 2 days [address] [facility] [address] [facility] Emergency Department If symptoms worsen [address] [facility] [address] Per Pt None Discharge Medications: There are no discharge medications for this patient. Victor Hugo Tuttle MD, [facility] Procedures Additional Documentation Procedures Attending Note: Documentation assistance provided by Therese Mendoza (Scribe). Information recorded by the scribe has been reviewed and validated by . Sangeeta montoya with its contents. MD Victor Hugo Hurd MD 06/17/14 0711 onversio n Transaction, Provider Unknown - 06/13/2014 7:10 PM PSTFormatting of this note might be di fferent from the original. ED Notes by Serina Miller RN at 06/13/141909 Author: Serina Miller RN Service: (none) Author Type: Registered Nurse Filed: 06/13/142121 Date of Service: 06/13/141909 Status: Signed Photograph Printer: Serina Miller RN (Registered Nurse) Pt reports that he has been clean of drugs x 17 months. Starting 2 3 days ago, pt states he started partying. Pt states "I shot up meth 3 days ago, and I shot up heroine tonight. Miguelito ght I used a dirty needle. Since I took the heroine, I have been feeling like I am tingling all over and I have pressure in my chest and neck." Serina Miller RN 06/13/142121 onver philipp Transaction, Provider Unknown - 06/13/2014 7:04 PM PST ED Notes by Paul Figueroa RN at 06/13/141903 Author: Paul Figueroa RN Service: (none) Author Type: Registered Nurse Filed: 06/13/141903 Date of Service: 06/13/141903 Status: Signed Photograph Printer: Paul Figueroa RN (Registered Nurse) Bed: 03 Expected date: Expected time: Means of arrival: Comments: docume nted in this encounter Plan of Treatment Not on filedocumented as of this encounter Procedures + +--------+ + + + | Procedure Name | Priori | Date/Time | Associated Diagnosis | Comments | | | ty | | | | + +--------+ + + + | DRUGS OF ABUSE | Routin | 06/13/2014 | | Results for this | | SCREEN, URINE (H) | e | 8:29 PM | | procedure are in the | | | | PST | | results section. | + +--------+ + + + | DRUG OF ABUSE, | Routin | 06/13/2014 | | Results for this | | AMPHET/METHAMPHET BY | e | 8:29 PM | | procedure are in the | | GC/MS | | PST | | results section. | + +--------+ + + + | TRICYCLICS, URINE, | Routin | 06/13/2014 | | Results for this | | QUAL | e | 8:29 PM | | procedure are in the | | | | PST | | results section. | + +--------+ + + + | XR CHEST 2 VIEWS | Routin | 06/13/2014 | | Results for this | | | e | 7:53 PM | | procedure are in the | | | | PST | | results section. | + +--------+ + + + | HISTORICAL LAB PANEL | Routin | 06/13/2014 | | Results for this | | RESULT | e | 7:20 PM | | procedure are in the | | | | PST | | results section. | + +--------+ + + + | ECG 12 LEAD | Routin | 06/13/2014 | | Results for this | | | e | 7:01 PM | | procedure are in the | | | | PST | | results section. | + +--------+ + + + documented in this encounter Results Bell DILL/Eleuterio,GC/MS (06/13/2014 8:29 PM PST) + + + + + + | Component | Value | Ref Range | Performed | Pathologist | | | | | At | Signature | + + + + + + | Amphetamine | NEGATIVEComment: The | | EXTERNAL | | | s | cutoff for a positive | | LAB | | | | AMP is 1000 | | | | | | ng/mL.Testing performed | | | | | | at [facility];[address] | | | | | | [address];[place] [address] | | | | + + + + + + | Methampheta | POSITIVE (A)Comment: | | EXTERNAL | | | mine | The cutoff for a | | LAB | | | Screen, UA, | positive mAMP is 1000 | | | | | POC | ng/mL.Testing performed | | | | | | at [facility];[address] | | | | | | [address] [address] | | | | + + + + + + + + | Specimen | + + | | + + + +---------+ + + | Performing | Address | City/State/Zipcode | Phone Number | | Organization | | | | + +---------+ + + | EXTERNAL LAB | | | | + +---------+ + + Tricyclics, Urine, Qual (06/13/2014 8:29 PM PST) + + + + + + | Component | Value | Ref Range | Performed | Pathologist | | | | | At | Signature | + + + + + + | TCA Scrn | NEGATIVEComment: | | EXTERNAL | | | | Positive cutoff for TCA | | LAB | | | | = 1000 ng/mLTesting | | | | | | performed at [facility] | | | | | | [address];[place] | | | | | | [address] | | | | + + + + + + + + | Specimen | + + | Urine specimen | | (specimen) | + + + +---------+ + + | Performing | Address | City/State/Zipcode | Phone Number | | Organization | | | | + +---------+ + + | EXTERNAL LAB | | | | + +---------+ + + Drugs Of ABuse Screen, Urine (H) (06/13/2014 8:29 PM PST) + + + + + + | Component | Value | Ref Range | Performed | Pathologist | | | | | At | Signature | + + + + + + | Methampheta | POSITIVE (A)Comment: | | EXTERNAL | | | mine/ | Positive cutoff for | | LAB | | | Amphetamine | AMP = 1000 ng/mLTesting | | | | | Screen, | performed at [facility];[address] | | | | | [address], [address];[place] | | | | | | [address] | | | | + + + + + + | Barbiturate | NEGATIVEComment: | | EXTERNAL | | | s Screen, | Positive cutoff for | | LAB | | | Urine | MARY = 200 ng/mLTesting | | | | | | performed at [facility];[address] | | | | | | [address];[place] | | | | | | [address] | | | | + + + + + + | Benzodiazep | NEGATIVEComment: | | EXTERNAL | | | juaquin | Positive cutoff for | | LAB | | | Screen, | BENZO = 200 ng/mLTesting | | | | | Urine | performed at [facility];[address] | | | | | | [address];[place] | | | | | | [address] | | | | + + + + + + | Cocaine | NEGATIVEComment: | | EXTERNAL | | | | Positive cutoff for | | LAB | | | | PRASAD = 300 ng/mLTesting | | | | | | performed at [facility];[address] | | | | | | [address];[place] | | | | | | [address] | | | | + + + + + + | Methadone | NEGATIVEComment: | | EXTERNAL | | | | Positive cutoff for | | LAB | | | | MTD = 300 ng/mLTesting | | | | | | performed at [facility];[address] | | | | | | [address];[place] | | | | | | [address] | | | | + + + + + + | Opiates | POSITIVE (A)Comment: | | EXTERNAL | | | | Positive cutoff for | | LAB | | | | OPI = 300 ng/mLTesting | | | | | | performed at [facility];[address] | | | | | | [address];[place] | | | | | | [address] | | | | + + + + + + | PCP | NEGATIVEComment: | | EXTERNAL | | | | Positive cutoff for PCP | | LAB | | | | = 25 ng/mLTesting | | | | | | performed at [facility];[address] | | | | | | [address];[place] | | | | | | [address] | | | | + + + + + + | Cannabinoid | NEGATIVEComment: | | EXTERNAL | | | s Screen, | Positive cutoff for THC | | LAB | | | Serum | = 50 ng/mLThe above are | | | | | | unconfirmed screening | | | | | | results. These results | | | | | | are to be used only for | | | | | | medical | | | | | | (i.e.,treatment) | | | | | | purposes. Unconfirmed | | | | | | screening results must | | | | | | not be used for | | | | | | non-medical purposes | | | | | | (e.g., employment | | | | | | testing, legal | | | | | | testing).Testing | | | | | | performed at [facility] | | | | | | [address];[place] | | | | | | [address] | | | | + + + + + + + + | Specimen | + + | Urine specimen | | (specimen) | + + + +---------+ + + | Performing | Address | City/State/Zipcode | Phone Number | | Organization | | | | + +---------+ + + | EXTERNAL LAB | | | | + +---------+ + + XR Chest 2 Vws (06/13/2014 7:53 PM PST) + + | Specimen | + + | | + + + + + | Impressions | Performed At | + + + | 1. Normal chest. | | + + + + + + | Narrative | Performed At | + + + | LAURA Eulogio UDELL XR CHEST 2 VIEW FRONTAL AND LATERAL 06/13/2014 | | | 7:53 PM History: 29 years. Male. Acute chest pain, | | | presenting to the emergency room. Technique: PA and lateral views | | | of the chest. Comparison: No prior chest radiography at this | | | facility.. Findings: The lungs and pleural spaces are clear. | | | The bronchovascular markings are normal. The cardiac silhouette and | | | pulmonary vasculature are normal. Osseous structures are | | | unremarkable. The mediastinal contours and pulmonary emma are | | | normal. The thoracic aorta is normal. | | + + + + + | Procedure Note | + + | Rinku Lewis Conversion - 12/17/2018 12:31 AM PDT [facility]URA RODRIGUEZ CHEST 2 VIEW | | FRONTAL AND LATERAL06/13/2014 7:53 PM History: 29 years. Male. Acute chest pain, | | presenting to the emergency room. Technique: PA and lateral views of the | | chest.Comparison: No prior chest radiography at this facility.. Findings: The lungs | | and pleural spaces are clear. The bronchovascular markings are normal. The cardiac | | silhouette and pulmonary vasculature are normal. Osseous structures are unremarkable. | | The mediastinal contours and pulmonary emma are normal. The thoracic aorta is normal. | | IMPRESSION: 1. Normal chest. Electronically signed by Norbert Mujica MD on | | 06/13/2014 8:30 PM | |Findings: The lungs and pleural spaces are clear. The bronchovascular markings are normal . The cardiac silhouette and pulmonary vasculature are normal. Osseous structures are unrem arkable. The mediastinal contours | |and pulmonary emma are normal. The | |thoracic aorta is normal. | | | |IMPRESSION: | |1. Normal chest. | | | | | | | + + HISTORICAL LAB PANEL RESULT (06/13/2014 7:20 PM PST) + + + + + -+ | Component | Value | Ref Range | Performed | Pathologist | | | | | At | Signature | + + + + + -+ | WBC | 7.7Comment: Testing | 3.8 - 11.0 K/uL | EXTERNAL | | | | performed at [facility];[address] | | LAB | | | | [address];[place] | | | | | | [address] | | | | + + + + + -+ | Non- | 4.73Comment: Testing | 4.20 - 5.70 | EXTERNAL | | | Red Blood | performed at [facility];[address] | M/uL | LAB | | | Cells | [address];[place] | | | | | Counted | [address] | | | | + + + + + -+ | Hemoglobin | 15.5Comment: Testing | 13.2 - 17.0 | EXTERNAL | | | | performed at [facility];[address] | g/dL | LAB | | | | [address];[place] | | | | | | [address] | | | | + + + + + -+ | Hematocrit, | 44.2Comment: Testing | 39.0 - 50.0 % | EXTERNAL | | | POC | performed at [facility];[address] | | LAB | | | | [address];[place] | | | | | | [address] | | | | + + + + + -+ | MCV | 93.4Comment: Testing | 80.0 - 100.0 fl | EXTERNAL | | | | performed at [facility];[address] | | LAB | | | | [address];[place] | | | | | | [address] | | | | + + + + + -+ | MCH | 32.8Comment: Testing | 27.0 - 34.0 pg | EXTERNAL | | | | performed at [facility];[address] | | LAB | | | | [address];[place] | | | | | | [address] | | | | + + + + + -+ | MCHC | 35.1Comment: Testing | 32.0 - 35.5 | EXTERNAL | | | | performed at [facility];[address] | g/dL | LAB | | | | [address];[place] | | | | | | [address] | | | | + + + + + -+ | RDW-CV | 38.9Comment: Testing | 37 - 53 fl | EXTERNAL | | | | performed at [facility];[address] | | LAB | | | | [address];[place] | | | | | | [address] | | | | + + + + + -+ | Platelet | 207Comment: Testing | 150 - 400 K/uL | EXTERNAL | | | Count | performed at [facility];[address] | | LAB | | | Plasma | [address];[place] | | | | | | [address] | | | | + + + + + -+ | MPV | 7.7Comment: Testing | fl | EXTERNAL | | | | performed at [facility];[address] | | LAB | | | | [address];[place] | | | | | | [address] | | | | + + + + + -+ | Differentia | AUTOMATEDComment: | | EXTERNAL | | | l Type | Testing performed at | | LAB | | | | [facility];[address];[place] [address] | | | | + + + + + -+ | % Segmented | 53.9Comment: Testing | % | EXTERNAL | | | | performed at [facility];[address] | | LAB | | | Neutrophils | [address];[place] | | | | | | [address] | | | | + + + + + -+ | % | 35.5Comment: Testing | % | EXTERNAL | | | Lymphocytes | performed at [facility];[address] | | LAB | | | | [address];[place] | | | | | | [address] | | | | + + + + + -+ | % Monocytes | 8.3Comment: Testing | % | EXTERNAL | | | | performed at [facility];[address] | | LAB | | | | [address];[place] | | | | | | [address] | | | | + + + + + -+ | % | 1.2Comment: Testing | % | EXTERNAL | | | Eosinophils | performed at [facility];[address] | | LAB | | | | [address];[place] | | | | | | [address] | | | | + + + + + -+ | % Basophils | 1.1Comment: Testing | % | EXTERNAL | | | | performed at [facility];[address] | | LAB | | | | [address];[place] | | | | | | [address] | | | | + + + + + -+ | Absolute | 4.2Comment: Testing | 1.9 - 7.4 K/uL | EXTERNAL | | | Segmented | performed at [facility];[address] | | LAB | | | Neutrophils | [address];[place] | | | | | | [address] | | | | + + + + + -+ | Absolute | 2.7Comment: Testing | 1.0 - 3.9 K/uL | EXTERNAL | | | Lymphocytes | performed at [facility];[address] | | LAB | | | | [address];[place] | | | | | | [address] | | | | + + + + + -+ | Absolute | 0.6Comment: Testing | 0 - 0.8 K/uL | EXTERNAL | | | Monocytes | performed at [facility];[address] | | LAB | | | | [address];[place] | | | | | | [address] | | | | + + + + + -+ | Absolute | 0.1Comment: Testing | 0 - 0.5 K/uL | EXTERNAL | | | Eosinophils | performed at [facility];[address] | | LAB | | | [address];[place] | | | | | | [address] | | | | + + + + + -+ | Absolute | 0.1Comment: Testing | 0 - 0.1 K/uL | EXTERNAL | | | Basophils | performed at [facility];[address] | | LAB | | | | [address];[place] | | | | | | [address] | | | | + + + + + -+ | Na | 137Comment: Testing | 135 - 143 | EXTERNAL | | | | performed at [facility];[address] | mmol/L | LAB | | | | [address];[place] | | | | | | [address] | | | | + + + + + -+ | K | 3.1 (L)Comment: Testing | 3.5 - 4.9 | EXTERNAL | | | | performed at [facility];[address] | mmol/L | LAB | | | | [address];[place] | | | | | | [address] | | | | + + + + + -+ | Cl | 103Comment: Testing | 99 - 109 mmol/L | EXTERNAL | | | | performed at [facility];[address] | | LAB | | | | [address];[place] | | | | | | [address] | | | | + + + + + -+ | CO2 | 23Comment: Testing | 23 - 32 mmol/L | EXTERNAL | | | | performed at [facility];[address] | | LAB | | | | [address];[place] | | | | | | [address] | | | | + + + + + -+ | Anion Gap | 15Comment: Testing | 5 - 20 mmol/L | EXTERNAL | | | | performed at [facility];[address] | | LAB | | | | [address];[place] | | | | | | [address] | | | | + + + + + -+ | Glucose, | 137 (H)Comment: Testing | 65 - 99 mg/dL | EXTERNAL | | | Fasting | performed at [facility];[address] | | LAB | | | | [address];[place] | | | | | | [id number] | | | | + + + + + -+ | BUN | 10Comment: Testing | 8 - 25 mg/dL | EXTERNAL | | | | performed at [facility];[address] | | LAB | | | | [address];[place] | | | | | | [address] | | | | + + + + + -+ | Creatinine | 1.07Comment: Testing | 0.70 - 1.30 | EXTERNAL | | | | performed at [facility];[address] | mg/dL | LAB | | | | [address];[place] | | | | | | [address] | | | | + + + + + -+ | BUN/Creatin | 10Comment: Testing | | EXTERNAL | | | ine Ratio | performed at [facility];[address] | | LAB | | | | [address];[place] | | | | | | [address] | | | | + + + + + -+ | Calcium | 9.4Comment: NOTE NEW | 8.5 - 10.5 | EXTERNAL | | | | REFERENCE RANGETesting | mg/dL | LAB | | | | performed at [facility];[address] | | | | | | [address];[place] | | | | | | [address] | | | | + + + + + -+ | Protein, | 8.2Comment: Testing | 6.3 - 8.2 g/dL | EXTERNAL | | | Total | performed at [facility];[address] | | LAB | | | | [address];[place] | | | | | | [address] | | | | + + + + + -+ | Albumin | 4.3Comment: Testing | 3.6 - 5.0 g/dL | EXTERNAL | | | | performed at [facility];[address] | | LAB | | | | [address];[place] | | | | | | [address] | | | | + + + + + -+ | Globulin | 3.9Comment: Testing | 1.3 - 4.9 g/dL | EXTERNAL | | | | performed at [facility];[address] | | LAB | | | | [address];[place] | | | | | | [address] | | | | + + + + + -+ | A/G Ratio | 1.1Comment: Testing | 1.0 - 2.4 | EXTERNAL | | | | performed at [facility];[address] | | LAB | | | | [address];[place] | | | | | | [address] | | | | + + + + + -+ | Bilirubin | 1.7 (H)Comment: Testing | 0.1 - 1.5 mg/dL | EXTERNAL | | | Total | performed at [facility];[address] | | LAB | | | | [address];[place] | | | | | | [address] | | | | + + + + + -+ | ALP, | 55Comment: Testing | 35 - 115 U/L | EXTERNAL | | | External | performed at [facility];[address] | | LAB | | | | [address];[place] | | | | | | [address] | | | | + + + + + -+ | AST | 23Comment: Testing | 10 - 45 U/L | EXTERNAL | | | | performed at [facility];[address] | | LAB | | | | [address];[place] | | | | | | [address] | | | | + + + + + -+ | ALT | 33Comment: Testing | 10 - 65 U/L | EXTERNAL | | | | performed at [facility];[address] | | LAB | | | | [address];[place] | | | | | | [address] | | | | + + + + + -+ | Estimated | >60Comment: GFR <60: | mL/min/1.73m2 | EXTERNAL | | | GFR | CHRONIC KIDNEY DISEASE, | | LAB | | | | IF FOUND OVER A 3 MONTH | | | | | | PERIOD.GFR <15: KIDNEY | | | | | | FAILURE.FOR | | | | | | AMERICANS, MULTIPLY THE | | | | | | CALCULATED GFR BY | | | | | | 1.210.Testing performed | | | | | | at [facility];[address];[place] [address] | | | | + + + + + -+ | CK, Total | 95Comment: Testing | 55 - 400 U/L | EXTERNAL | | | | performed at [facility];[address] | | LAB | | | | [address];[place] | | | | | | [address] | | | | + + + + + -+ | INR | 1.2Comment: REFERENCE | | EXTERNAL | | | | RANGE:0.9 - 1.2 | | LAB | | | | NON-ANTICOAGULATED2.0 | | | | | | - 3.0 ALL OTHER | | | | | | THERAPEUTIC | | | | | | INDICATIONS2.5 - 3.5 | | | | | | MECHANICAL HEART VALVES, | | | | | | RECURRENT OR SYSTEMIC | | | | | | EMBOLISMTesting | | | | | | performed at [facility];[address] | | | | | | [address];[place] | | | | | | [address] | | | | + + + + + -+ | aPTT, | 27Comment: Testing | 23 - 32 seconds | EXTERNAL | | | Patient | performed at [facility];[address] | | LAB | | | | [address];[place] | | | | | | [address] | | | | + + + + + -+ | CK-MB | 0.8Comment: Testing | 0.5 - 3.6 ng/mL | EXTERNAL | | | | performed at [facility];[address] | | LAB | | | | [address];[place] | | | | | | [address] | | | | + + + + + -+ | CK-MB Index | 0.8Comment: CK INDEX | | EXTERNAL | | | | INTERPRETATION: | | LAB | | | | MMB ng/mL | | | | | | | | | | | |CK INDEX INTERPRETATION: | | | | | | MMB ng/mL | | | | | | | | | | + + + + + -+ + + | Specimen | + + | | + + + +---------+ + + | Performing | Address | City/State/Zipcode | Phone Number | | Organization | | | | + +---------+ + + | EXTERNAL LAB | | | | + +---------+ + + ECG 12 lead (06/13/2014 7:01 PM PST) + + + + + + | Component | Value | Ref Range | Performed | Pathologist | | | | | At | Signature | + + + + + + | DIAGNOSIS: | Sinus | | EXTERNAL | | | | tachycardiaOtherwise | | LAB | | | | normal ECGWhen compared | | | | | | with ECG of 06-AUG-2012 | | | | | | 04:26,Non-specific | | | | | | change in ST segment in | | | | | | Inferior leadsThis ECG | | | | | | contains Unconfirmed | | | | | | Interpretation | | | | | | Statements. See ED | | | | | | Record for Physician | | | | | | Interpretation. | | | | | | Confirmed by M[facility] READ | | | | | | ONLY, -COMPUTER ([id number]), | | | | | | editor & co founder Vibha Lemos | | | | | | (25) on 06/14/2014 | | | | | | 1:08:16 AM | | | | + + + + + + + + | Specimen | + + | | + + + + + | Narrative | Performed At | + + + | Historically converted procedure from [facility] environment | EXTERNAL LAB | + + + + +---------+ + + | Performing | Address | City/State/Zipcode | Phone Number | | Organization | | | | + +---------+ + + | EXTERNAL LAB | | | | + +---------+ + + documented in this encounter Visit Diagnoses + + | Diagnosis | + + | Chest pain Chest pain, unspecified | + + | Opiate abuse, episodic (HCC) Opioid abuse, episodic | + + | 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
[~2019-11-14 09:31] MED LIST: BACTRIM DS TAB1 EACH PO; METHADONE HCL50 GM MISC
--- OUTSIDE RECORDS SUMMARY | 2019-11-14 09:36 | XMS ---
PreManage Notification: ANDRES ESCOBAR [employer] Buffer Events No recent Security Events currently on file CRITERIA MET - [facility] - 2 Visits in 30 Days CARE PROVIDERS MARY MICHELLE Nurse Practitioner: Family Current PHONE: [phone] Michele has no Care Guidelines for this patient. [place] VISIT COUNT (12 MO.) 2 [facility] TOTAL 2 NOTE: Visits indicate total known visits. ED/UCC VISIT TRACKING (12 MO.) 11/14/2019 09:32 [facility] TYPE: Emergency COMPLAINT: - RIGHT ELBOW PAIN NON INJ 10/27/2019 08:13 [facility] [place] TYPE: Emergency COMPLAINT: - ABSCESS ON RIGHT ARM DIAGNOSES: - Cutaneous abscess of right upper limb - Other specified soft tissue disorders INPATIENT VISIT TRACKING (12 MO.) No inpatient visits to display in this time frame [email or web address]
[2019-11-14] MEDS ORDERED: CLINDAMYCIN HC300 MG PO (10:16)
== END 2019-11-14 10:40 | disposition home or self-care (01) ==
LOC: ED 09:31
DX: L03.113 Cellulitis of right upper limb (principal)
CPT/HCPCS: 99283